=== PATIENT | male | born 1960 | race Caucasian/White ===

== ENCOUNTER → 2016-12-13 | Outpatient (CLI) | payer BC ==
[~2016-12-13] MED LIST: LSNUNK
--- NOTE | 2016-12-13 08:23 | DIAGNOSTIC IMAGING REPORT ---
ULTRASOUND ABDOMEN COMPLETE CLINICAL HISTORY: Generalized abdominal pain. COMPARISON STUDY: Abdominal radiograph dated 04/18/2016. TECHNIQUE: Real-time, grayscale, and color flow sonography of the abdomen was performed. Images are reviewed in the transverse and longitudinal planes. FINDINGS: Liver: The liver is normal in size and echotexture. There is no intrahepatic biliary ductal dilatation. The main portal vein is patent. Gallbladder: A 4 mm gallbladder polyp is incidentally noted. The gallbladder is otherwise normal in appearance. No gallstones are identified. There is no gallbladder wall thickening or pericholecystic fluid. A sonographic Castaneda's sign is reportedly absent. The common bile duct measures up to 0.6 cm in diameter. Pancreas: Not well visualized due to overlying bowel gas. Spleen: The spleen is normal in size and echotexture, measuring 8.4 cm in length. Kidneys: The kidneys are normal in size and echotexture. There is no hydronephrosis. The right kidney measures 9.5 cm in length and the left kidney measures 9.3 cm in length. No shadowing calculi are identified. Abdominal vasculature: Visualized portions of the abdominal aorta are normal in appearance. The majority of the aorta was not well visualized. Ascites: None. IMPRESSION: 1. No acute sonographic abnormality is identified. 2. No gallstones are seen. 3. The pancreas was not well visualized due to overlying bowel gas. 4. A 4 mm gallbladder polyp is incidentally noted. Electronically signed by: Ricky Escamilla M.D. 12/13/2016 8:21 AM Dictated Date/Time: 12/13/2016 8:19 AM
== END | disposition home or self-care (01) ==
LOC: C.ULTRBC 07:51
PROVIDERS: ATTEND Family Medicine
DX: R10.9 Unspecified abdominal pain (principal); K82.4 Cholesterolosis of gallbladder

== ENCOUNTER → 2017-06-14 | Outpatient (CLI) | payer BC ==
--- NOTE | 2017-06-14 10:01 | DIAGNOSTIC IMAGING REPORT ---
ABDOMEN FOR HERNIA CLINICAL HISTORY: 57 years-old Male presenting with R10.33 Periumbilical abdominal painR/O VENTRAL HERNIA, AREA CYNTHIA. TECHNIQUE: Real-time grayscale ultrasound imaging of the abdominal wall was performed for a focused evaluation at the site of clinical interest in the supraumbilical region the left of midline. COMPARISON: None. FINDINGS: No definite sonographic abnormality is detected. No evidence of hernia or fluid collection. Normal appearance of the musculature. IMPRESSION: 1. No definite herniation is apparent. Electronically signed by: Dc Aguirre M.D. 06/14/2017 10:00 AM Dictated Date/Time: 06/14/2017 9:58 AM
== END | disposition home or self-care (01) ==
LOC: C.ULTRBC 09:37
PROVIDERS: ATTEND Surgery
DX: R10.33 Periumbilical pain (principal)

== ENCOUNTER → 2017-12-19 | Outpatient (CLI) | payer OTHER ==
--- NOTE | 2017-12-19 08:23 | DIAGNOSTIC IMAGING REPORT ---
ABDOMINAL ULTRASOUND, RIGHT UPPER QUADRANT HISTORY: CHOLESTEROLOSIS OF GALLBLADDER. COMPARISON: Abdominal ultrasound 12/13/2016. FINDINGS: Pancreas: Obscured by overlying bowel gas. Liver: Unremarkable. Gallbladder: No gallbladder wall thickening. No gallstones. A few small polyps with the largest measuring 4 mm. This remains unchanged. CBD: Upper limits of normal measuring 6 mm. Right kidney: No hydronephrosis. IMPRESSION: No change compared to the prior study. Stable subcentimeter gallbladder polyps. Electronically signed by: Carlos Coyle M.D. 12/19/2017 8:22 AM Dictated Date/Time: 12/19/2017 8:20 AM
== END | disposition home or self-care (01) ==
LOC: C.ULTR 07:35
PROVIDERS: ATTEND Family Medicine
DX: K82.4 Cholesterolosis of gallbladder (principal)

== ENCOUNTER 2020-09-10 19:51 | Inpatient (IN) ==
[2020-09-10] MEDS ORDERED: ONDANSETRON INJ 2 MG/ML 2 ML VIAL IV STA (20:04)
[2020-09-10] MEDS ORDERED: SODIUM CHLORIDE 0.9% 1000ML 2,000 ML IV ONE (20:04)
[2020-09-10] MEDS ORDERED: PIPERACILLIN/TAZOBACTAM 4.5 GM/120 ML BAG IV ONE (20:06)
[2020-09-10] MEDS ORDERED: VANCOMYCIN CONSULT ACTIVE PRN (20:06)
[2020-09-10] MEDS ORDERED: DEXAMETHASONE SOD INJ 10 MG/ML VIAL IV ONE (20:06)
[2020-09-10] MEDS ORDERED: VANCOMYCIN HCL 1,500 MG in SODIUM CHLORIDE 0.9% 500 ML IV ONE (20:06)
[2020-09-10] MEDS ORDERED: PIPERACILL/TAZOBAC CONSULT ACTIVE PRN (20:06)
[2020-09-10] MEDS ORDERED: REMDESIVIR 200 MG in SODIUM CHLORIDE 0.9% 210 ML IV STA (20:06)
[2020-09-10] MEDS ORDERED: SODIUM CHLORIDE 0.9% 10ML FLUSH IV SCH (20:15)
[2020-09-10 20:27] LABS: Basophils # (auto) 0.03 K/uL (0-0.2); Basophils % (auto) 0.3 %; Eosinophils # (auto) 0.29 K/uL (0-0.5); Eosinophils % (auto) 2.6 %; Hematocrit (blood only) 40.8 % (42-52); Hemoglobin 14.1 g/dL (14.0-18.0); Immature Granulocytes # (auto) 0.03 K/uL (0.00-0.02); Immature Granulocytes % (auto) 0.3 %; Lymphocytes # (auto) 1.65 K/uL (1.2-3.4); Lymphocytes % (auto) 15.1 %; Mean Corpuscular Hemoglobin 30.3 pg (25-34); Mean Corpuscular Hgb Conc 34.6 g/dL (32-36); Mean Corpuscular Volume 87.7 fL (80-100); Mean Platelet Volume 9.8 fL (7.4-10.4); Monocytes # (auto) 0.84 K/uL (0.11-0.59); Monocytes % (auto) 7.7 %; Neutrophils # (auto) 8.12 K/uL (1.4-6.5); Platelet Count 296 K/uL (130-400); RDW Coefficient of Variation 12.4 % (11.5-14.5); RDW Standard Deviation 39.9 fL (36.4-46.3); Red Blood Count 4.65 M/uL (4.7-6.1); White Blood Count 10.96 K/uL (4.8-10.8)
[2020-09-10 20:36] LABS: Base Excess VBG 0.2 mEq/L; Oxygen Saturation VBG 88.7 %; pH VBG 7.44 (7.36-7.41)
[2020-09-10 20:39] LABS: D Dimer 470 ug/L FEU (0-500); Partial Thromboplastin Ratio 0.8; Partial Thromboplastin Time 22.5 Seconds (21.0-31.0); Prothrombin Time 10.8 Seconds (9.0-12.0)
--- NOTE | 2020-09-10 20:43 | Emergency Department Note ---
Impression & Plan Pneumonia, Acute hypotension ED Provider Note NAME: JOVAN MANDEL AGE: 60 SEX: M : 1960 ARRIVES VIA: Walk-In INFORMANT: Patient, patient's significant other ED PROVIDER(S): Duncan Russ DO CHIEF COMPLAINT: Fever HPI: The patient is a 60-year-old male who presented to the emergency department with his significant other for an evaluation of generalized weakness. The patient was diagnosed with COVID-19 infection recently. Initially he had mostly muscle aches but started having significant cough rhinorrhea and difficulty breathing. He started having worsening symptoms over the last 2 days. His significant other states that she has been monitoring his pulse ox as well as his pulse rate. Apparently the patient has been having fast heart rate as well as oxygen saturation in the upper 80s. The patient started having significant weakness to the point where he was having trouble ambulating so she brought him to the emergency department for further evaluation. The patient was moved directly to room C5 and made a priority patient because of significant hypotension. He does have a history of hypertension and takes medications. He states that he is on no specific medications for COVID-19 infection. He denies having any recent medications for fever. He has been trying to drink plenty of clear liquids. The patient has been noticing some GI symptoms such as nausea. The patient has not recently been seen by his doctor. ROS: See above HPI for pertinent positives & negatives. A total of 10 systems reviewed and were otherwise negative. PAST MEDICAL HISTORY: See Below PAST SURGICAL HISTORY: See Below FAMILY HISTORY: See Below SOCIAL HISTORY: See Below HOME MEDICATIONS: See Below ALLERGIES: See Below VITALS: See Below PHYSICAL EXAMINATION: GENERAL: The patient is awake and alert. He is somewhat anxious appearing. EYES: The conjunctivae are clear. The pupils are round and reactive. EARS, NOSE, MOUTH AND THROAT: The nose is without any evidence of any deformity. Mucous membranes are moist. Tongue is midline. NECK: The neck is nontender and supple. RESPIRATORY: Shallow respirations were noted. Diminished breath sounds are noted in the right lung field. There was no tachypnea. CARDIOVASCULAR: Regular rate and rhythm noted there no murmurs rubs or gallops normal S1 normal S2. GASTROINTESTINAL: The abdomen is soft. Abdomen is nontender. MUSCULOSKELETAL/EXTREMITIES: There is no evidence of gross deformity full range of motion is noted in the hips and shoulders. SKIN: Skin is warm and dry. Trace pedal edema was noted bilaterally. NEUROLOGIC: Patient is awake alert and oriented x3. MEDICAL DECISION MAKING: The patient is a 60-year-old male who presented to the emergency department for an evaluation of difficulty breathing. The patient was recently diagnosed with COVID-19 infection. The patient started to get worse over the course the last 24 hours. His significant other was following his pulse ox as well as his pulse rate. Apparently the patient became very hypoxic into the 80s and had severe shortness of breath and weakness. The patient presented to the emergency department with hypotension. He appeared to be septic. The patient was treated with IV fluids and IV antibiotics. He was also given IV Decadron and other medications for COVID-19 infection specifically. I discussed the patient's laboratory and radiographic studies with him and his significant other. I also discussed his case with the on-call [facility] hospitalist. He is agreed to evaluate the patient in the emergency department for further management and disposition. The patient's blood pressure was significantly improved. Triage Nursing notes reviewed. Prior medical records reviewed Vital Signs: reviewed and remarkable for hypotension. Differential diagnosis: Viral syndrome, otitis, pharyngitis, pneumonia, influenza, meningitis, urinary tract infection, sepsis, bacteremia, as well as other pathologies. ER treatment provided: See below Diagnostics interpreted by me: ECG: EKG was obtained in the emergency department. My interpretation is normal sinus rhythm at 71 bpm. There was no ectopy. There was no acute ST segment abnormalities noted. This was compared to a tracing from September 22, 2010. No significant changes were noted. Cardiac Monitoring: An order was placed for continuous cardiac monitoring. The monitor shows a rate of 85 bpm with sinus rhythm. Laboratory studies: As stated above and show below. Imaging studies: See below Consultation(s): 2129: I discussed this case with Dr. De La Cruz. They will evaluate the patient in the emergency department for further management and disposition. ED COURSE: Procedures: none PDMP:reviewed and no issues Critical Care: I have personally spent greater than 60 minutes of critical care time in the direct management of this patient. This includes bedside care, interpretation of diagnostic studies, and testing, discussion with consultants, patient, and family members, and other required patient management activities. This 60 minutes is in excess of all separately billable procedures. Past Med/Surg History Medical History (Updated 09/10/20 @ 21:42 by Duncan Russ DO) Carpal tunnel syndrome Environmental allergies Hyperlipidemia Hypertension Peptic ulcer disease 6yrs ago Surgical History History of cataract surgery LEFT. 05/14/2019. 4mg versed. no issues. History of colonoscopy 5 yrs ago History of tooth extraction Family History Other No known health problems Social History Smoking Status: Former smoker Second Hand Exposure: No; Hx Alcohol Use: Yes Alcohol type: beer and wine Hx Substance Use: No Preferred Language: Croatian Communication Ability: Impaired Senior Engineer Required: No Beliefs That Will Affect Care: None Current Living Situation: Spouse Feels Safe at Home: Yes Assistive Devices: Glasses Allergies Allergies Allergy/AdvReac Type Severity Reaction Status Date / Time Sulfa (Sulfonamide Allergy Intermediate HIVES Verified 05/28/19 08:41 Antibiotics) Home Meds Home Medications Medication Instructions Recorded Confirmed atorvastatin 20 mg PO HS 03/05/19 05/28/19 lisinopril 20 mg PO QAM 03/05/19 05/28/19 Results & Data (ED) Vital Signs Vital Signs - 24 hr 09/10/20 19:53 09/10/20 20:01 09/10/20 21:09 Temperature 36.2 C L Temperature Source Temporal Artery Scan Pulse Rate 50 L 77 77 Pulse Rate from SpO2 Sensor 77 78 Respiratory Rate 20 12 12 Respiratory Effort / Characteristics Blood Pressure 68/46 L 108/65 Blood Pressure Mean 53 71 Pulse Oximetry 94 95 95 Oxygen Delivery Method Room Air Room Air Room Air Sepsis Recent Fever Within 48 Hours Yes Sepsis New/Unexplained Change in Mental Status No Sepsis Action Taken by Nursing No Action Required 09/10/20 21:15 09/10/20 21:21 09/10/20 21:23 Temperature Temperature Source Pulse Rate 81 81 Pulse Rate from SpO2 Sensor 81 81 Respiratory Rate 13 23 16 Respiratory Effort / Characteristics Non-Labored Spontaneous Blood Pressure 128/79 Blood Pressure Mean 86 Pulse Oximetry 97 96 96 Oxygen Delivery Method Room Air Room Air Room Air Sepsis Recent Fever Within 48 Hours Sepsis New/Unexplained Change in Mental Status Sepsis Action Taken by Care Home Medications Current Medication List: was personally reviewed by me Laboratory Data Attestation: I reviewed the patient's lab results. Result diagrams: 09/10/20 20:11 09/10/20 20:11 Lab Results 09/10/20 09/10/20 09/10/20 Range/Units 20:04 20:11 20:11 WBC 10.96 H (4.8-10.8) K/uL RBC 4.65 L (4.7-6.1) M/uL Hgb 14.1 (14.0-18.0) g/dL Hct 40.8 L (42-52) % MCV 87.7 (80-100) fL MCH 30.3 (25-34) pg MCHC 34.6 (32-36) g/dL RDW Std Deviation 39.9 (36.4-46.3) fL RDW Coeff of Luis 12.4 (11.5-14.5) % Plt Count 296 (130-400) K/uL MPV 9.8 (7.4-10.4) fL Immature Gran % (Auto) 0.3 % Neut % (Auto) 74.0 % Lymph % (Auto) 15.1 % Laurel % (Auto) 7.7 % Eos % (Auto) 2.6 % Baso % (Auto) 0.3 % Neut # (Auto) 8.12 H (1.4-6.5) K/uL Lymph # (Auto) 1.65 (1.2-3.4) K/uL Laurel # (Auto) 0.84 H (0.11-0.59) K/uL Eos # (Auto) 0.29 (0-0.5) K/uL Baso # (Auto) 0.03 (0-0.2) K/uL Immature Gran # (Auto) 0.03 H (0.00-0.02) K/uL ESR 57 H (0-14) mm/hr PT (9.0-12.0) Seconds INR (0.9-1.1) APTT (21.0-31.0) Seconds PTT Ratio D-Dimer (0-500) ug/L FEU VBG pH 7.44 H (7.36-7.41) VBG pCO2 37 L (38-50) mmHg VBG pO2 55 mmHg VBG HCO3 24 mmol/L VBG O2 Saturation 88.7 % VBG Base Excess 0.2 mEq/L Barometric Pressure 738.2 mm/Hg Sodium (136-145) mmol/L Potassium (3.5-5.1) mmol/L Chloride (98-107) mmol/L Carbon Dioxide (21-32) mmol/L Anion Gap (3-11) BUN (7-18) mg/dl Creatinine (0.6-1.4) mg/dl Est Cr Clr Drug Dosing ml/min Est GFR ( Amer) Est GFR (Non-Af Amer) BUN/Creatinine Ratio (10-20) Glucose (70-99) mg/dl Lactate (0.4-2.0) mmol/L Calcium (8.5-10.1) mg/dl Magnesium (1.8-2.4) mg/dl Total Bilirubin (0.2-1) mg/dl AST (15-37) U/L ALT (12-78) U/L Alkaline Phosphatase (45-117) U/L Troponin I (0-0.045) ng/ml C-Reactive Protein (0-0.29) mg/dl Total Protein (6.4-8.2) gm/dl Albumin (3.4-5.0) gm/dl Globulin (2.5-4.0) gm/dl Albumin/Globulin Ratio (0.9-2) Procalcitonin (0-0.5) ng/ml 09/10/20 09/10/20 09/10/20 Range/Units 20:11 20:11 20:11 WBC (4.8-10.8) K/uL RBC (4.7-6.1) M/uL Hgb (14.0-18.0) g/dL Hct (42-52) % MCV (80-100) fL MCH (25-34) pg MCHC (32-36) g/dL RDW Std Deviation (36.4-46.3) fL RDW Coeff of Luis (11.5-14.5) % Plt Count (130-400) K/uL MPV (7.4-10.4) fL Immature Gran % (Auto) % Neut % (Auto) % Lymph % (Auto) % Laurel % (Auto) % Eos % (Auto) % Baso % (Auto) % Neut # (Auto) (1.4-6.5) K/uL Lymph # (Auto) (1.2-3.4) K/uL Laurel # (Auto) (0.11-0.59) K/uL Eos # (Auto) (0-0.5) K/uL Baso # (Auto) (0-0.2) K/uL Immature Gran # (Auto) (0.00-0.02) K/uL ESR (0-14) mm/hr PT 10.8 (9.0-12.0) Seconds INR 1.0 (0.9-1.1) APTT 22.5 (21.0-31.0) Seconds PTT Ratio 0.8 D-Dimer 470 (0-500) ug/L FEU VBG pH (7.36-7.41) VBG pCO2 (38-50) mmHg VBG pO2 mmHg VBG HCO3 mmol/L VBG O2 Saturation % VBG Base Excess mEq/L Barometric Pressure mm/Hg Sodium 138 (136-145) mmol/L Potassium 4.4 (3.5-5.1) mmol/L Chloride 106 (98-107) mmol/L Carbon Dioxide 27 (21-32) mmol/L Anion Gap 4.0 (3-11) BUN 21 H (7-18) mg/dl Creatinine 1.17 (0.6-1.4) mg/dl Est Cr Clr Drug Dosing 69.5 ml/min Est GFR ( Amer) 79.2 Est GFR (Non-Af Amer) 68.3 BUN/Creatinine Ratio 18.0 (10-20) Glucose 131 H (70-99) mg/dl Lactate 1.3 (0.4-2.0) mmol/L Calcium 8.9 (8.5-10.1) mg/dl Magnesium 2.3 (1.8-2.4) mg/dl Total Bilirubin 0.5 (0.2-1) mg/dl AST 28 (15-37) U/L ALT 24 (12-78) U/L Alkaline Phosphatase 81 (45-117) U/L Troponin I < 0.015 (0-0.045) ng/ml C-Reactive Protein 12.30 H (0-0.29) mg/dl Total Protein 7.1 (6.4-8.2) gm/dl Albumin 2.9 L (3.4-5.0) gm/dl Globulin 4.2 H (2.5-4.0) gm/dl Albumin/Globulin Ratio 0.7 L (0.9-2) Procalcitonin (0-0.5) ng/ml 09/10/20 Range/Units 20:11 WBC (4.8-10.8) K/uL RBC (4.7-6.1) M/uL Hgb (14.0-18.0) g/dL Hct (42-52) % MCV (80-100) fL MCH (25-34) pg MCHC (32-36) g/dL RDW Std Deviation (36.4-46.3) fL RDW Coeff of Luis (11.5-14.5) % Plt Count (130-400) K/uL MPV (7.4-10.4) fL Immature Gran % (Auto) % Neut % (Auto) % Lymph % (Auto) % Laurel % (Auto) % Eos % (Auto) % Baso % (Auto) % Neut # (Auto) (1.4-6.5) K/uL Lymph # (Auto) (1.2-3.4) K/uL Laurel # (Auto) (0.11-0.59) K/uL Eos # (Auto) (0-0.5) K/uL Baso # (Auto) (0-0.2) K/uL Immature Gran # (Auto) (0.00-0.02) K/uL ESR (0-14) mm/hr PT (9.0-12.0) Seconds INR (0.9-1.1) APTT (21.0-31.0) Seconds PTT Ratio D-Dimer (0-500) ug/L FEU VBG pH (7.36-7.41) VBG pCO2 (38-50) mmHg VBG pO2 mmHg VBG HCO3 mmol/L VBG O2 Saturation % VBG Base Excess mEq/L Barometric Pressure mm/Hg Sodium (136-145) mmol/L Potassium (3.5-5.1) mmol/L Chloride (98-107) mmol/L Carbon Dioxide (21-32) mmol/L Anion Gap (3-11) BUN (7-18) mg/dl Creatinine (0.6-1.4) mg/dl Est Cr Clr Drug Dosing ml/min Est GFR ( Amer) Est GFR (Non-Af Amer) BUN/Creatinine Ratio (10-20) Glucose (70-99) mg/dl Lactate (0.4-2.0) mmol/L Calcium (8.5-10.1) mg/dl Magnesium (1.8-2.4) mg/dl Total Bilirubin (0.2-1) mg/dl AST (15-37) U/L ALT (12-78) U/L Alkaline Phosphatase (45-117) U/L Troponin I (0-0.045) ng/ml C-Reactive Protein (0-0.29) mg/dl Total Protein (6.4-8.2) gm/dl Albumin (3.4-5.0) gm/dl Globulin (2.5-4.0) gm/dl Albumin/Globulin Ratio (0.9-2) Procalcitonin 0.10 (0-0.5) ng/ml Administered Medications Sodium Chloride (Nss 1000ml) 2,000 mls @ 999 mls/hr IV .Q2H1M ONE Stop: 09/10/20 22:04 Last Infusion: 09/10/20 21:24 Dose: 0 mls/hr Documented by: [id number] Admin: 09/10/20 20:28 Dose: 999 mls/hr Documented by: [id number] Vancomycin HCl 1,500 mg/ (Sodium Chloride) 530 mls @ 200 mls/hr IV NOW ONE Stop: 09/10/20 22:44 Last Admin: 09/10/20 21:30 Dose: 200 mls/hr Documented by: [id number] Remdesivir 200 mg/ Sodium (Chloride) 250 mls @ 125 mls/hr IV ONE STA; Protocol Stop: 09/10/20 22:05 Last Admin: 09/10/20 21:18 Dose: 125 mls/hr Documented by: [id number] Discontinued Medications Dexamethasone (Dexamethasone Sod Inj 10 Mg/Ml Vial) 10 mg IV NOW ONE Stop: 09/10/20 20:07 Last Admin: 09/10/20 20:29 Dose: 10 mg Documented by: [id number] Piperacillin Sod/Tazobactam Sod (Zosyn) 4.5 gm in 120 mls @ 240 mls/hr IV NOW ONE Stop: 09/10/20 20:35 Last Infusion: 09/10/20 21:24 Dose: 0 mls/hr Documented by: [id number] Admin: 09/10/20 20:28 Dose: 240 mls/hr Documented by: [id number] Ondansetron HCl (Ondansetron Inj 2 Mg/Ml 2 Ml Vial) 4 mg IV NOW STA Stop: 09/10/20 20:05 Last Admin: 09/10/20 20:32 Dose: 4 mg Documented by: [id number] Imaging Data Radiologist's Impression: Patient: CHUNG WAGNER Admit Date: 09/10/20 MR#: [id number] Address1: [address] [place] [address] Acct ID:[id number] Address2: Date: 12/24/1968 [facility] Zip: [place] [address] Age: 51 Location: ED Sex: M Room/Bed: Att Phy: Diagnosis: SUGAR HIGH,CHEST PAIN Kamila Phy: Barney Buchanan MD Service Date: 09/10/20 [facility] Phy: Interpreting Phy: Ricky Escamilla MD Admit Phy: Ordering Phy: Hiram Edwards M.D. cc: ~ SINGLE VIEW CHEST CLINICAL HISTORY: Dyspnea. FINDINGS: An AP, portable, upright chest radiograph is compared to study dated 07/24/2019 and correlated with chest CT dated 08/20/2019. The cardiomediastinal silhouette is unremarkable. The lungs and pleural spaces are clear. No pneumothorax is seen. The bony thorax is grossly intact. Degenerative change is noted in the right shoulder. IMPRESSION: No active disease in the chest. ACT 112: Negative or not required by law. Electronically signed by: Ricky Escamilla M.D. 09/10/2020 8:31 PM Dictated: 09/10/202029 Transcribed: 09/10/202029 Blood Pressure Blood Pressure Findings: Low blood pressure Discharge Plan Visit Data Chief Complaint: Fever Stated Complaint: COVID+, fever ED Provider: Duncan Russ Discharge Problem: Pneumonia, Acute hypotension Patient Disposition: Being Evaluated by Hospitalist Condition: Good Forms Stand Alone Forms: My [employer] Prescriptions Prescriptions: No Action atorvastatin 20 mg Tablet 20 mg PO HS RF: 0 lisinopril 20 mg Tablet 20 mg PO QAM RF: 0 Referrals Referrals: Frankie Gomes [Primary Care Provider] -
[2020-09-10 20:44] LABS: Alanine Aminotransferase 24 U/L (12-78); Albumin Level 2.9 gm/dl (3.4-5.0); Aspartate Aminotransferase 28 U/L (15-37); Blood Urea Nitrogen 21 mg/dl (7-18); Calcium 8.9 mg/dl (8.5-10.1); Carbon Dioxide 27 mmol/L (21-32); Chloride 106 mmol/L (98-107); Creatinine Clr Calc Pharmacy 69.5 ml/min; Est GFR (African American) 79.2; Est GFR (Non-African American) 68.3; Glucose 131 mg/dl (70-99); Magnesium 2.3 mg/dl (1.8-2.4); Potassium 4.4 mmol/L (3.5-5.1); Sodium 138 mmol/L (136-145)
[2020-09-10 20:49] LABS: Albumin Globulin Ratio 0.7 (0.9-2); Alkaline Phosphatase 81 U/L (45-117); Bilirubin,Total 0.5 mg/dl (0.2-1); Globulin 4.2 gm/dl (2.5-4.0); Total Protein 7.1 gm/dl (6.4-8.2); Troponin I < 0.015 ng/ml (0-0.045)
--- NOTE | 2020-09-10 21:01 | XRay Report ---
SINGLE VIEW CHEST CLINICAL HISTORY: Sepsis. FINDINGS: An AP, portable, upright chest radiograph is compared to study dated 08/17/2010. The cardio mediastinal silhouette is unremarkable. There is patchy interstitial airspace consolidation seen thro ughout both lungs. No large pleural effusion or pneumothorax is identified. The bony thorax is grossl y intact. IMPRESSION: Patchy interstitial airspace consolidation is seen throughout both lungs, typical for an infectious pneumonitis. Radiographic follow-up to resolution is recommended. ACT 112: Negative or not required by law. Electronically signed by: Ricky Escamilla M.D. 09/10/2020 9:00 PM
[2020-09-10 22:43] LABS: Influenza A virus by PCR Negative (Neg); Influenza B virus by PCR Negative (Neg); RSV by PCR Negative (Neg)
[2020-09-10 22:48] LABS: SARS CoV2 RNA(COVID-19) InHosp POSITIVE (Negative)
--- NOTE | 2020-09-10 23:08 | History & Physical Report ---
Date of Service September 10, 2020 Assessment & Plan (1) Pneumonia due to COVID-19 virus: Pneumonia due to COVID-19 virus/superimposed bacterial pneumonia/with hypoxia- Dexamethasone 6 mg IV daily Ceftriaxone 1 g IV every morning Azithromycin 500 mg IV every morning Zinc sulfate 220 mg p.o. every morning Ventolin HFA 2 puffs 4 times daily, and every 2 hours as needed Nasal cannula oxygen, titrate to keep pulse ox around 95% Present on Admission?: Yes (2) Pneumonia: Some of patient's symptoms had begun to improve, and then he developed some worsening symptoms, concerning for possible secondary bacterial infection See above Present on Admission?: Yes (3) Hypoxia: See above Present on Admission?: Yes (4) Acute hypotension: Acute hypotension, with hypertension history- Blood pressure upon arrival was 68/46, that did improve after IV fluid rehydration to 108/65. Hold lisinopril. Present on Admission?: Yes (5) Hypertension: See above Present on Admission?: Yes (6) Hyperlipidemia: Continue atorvastatin 20 mg at bedtime and aspirin 3 and 25 mg daily Present on Admission?: Yes History of Present Illness Chief Complaint: The patient presents to the emergency department, accompanied by his , who acts to help tell his history, with complaint of progressive generalized weakness over the past few days, with generalized muscle aches, cough and shortness of breath Primary Care Provider: Frankie Gomes The patient is a 60-year-old primarily Senegalese speaking male, accompanied by his , with a past medical history including hypertension and hyperlipidemia. She reports that she was initially diagnosed with COVID-19 illness, and he underwent testing on August [address] [facility] in [place], and was notified of a positive test on September 02. His symptoms were initially primarily that of a significant cough and runny nose, with shortness of breath. Since that time, he has had significant generalized weakness, and has been sleeping a lot more than usual over the past 3 days. Work-up in the emergency department includes following abnormal laboratories: WBC 10.96, albumin 2.9, glucose 131, ESR 57, CRP 12.30. PCR test for COVID-19 was positive in the ED tonight. Chest x-ray shows bilateral interstitial infiltrates. Allergies Allergy/AdvReac Type Severity Reaction Status Date / Time Sulfa (Sulfonamide Allergy Intermediate HIVES Verified 09/10/20 21:52 Antibiotics) Home Medications Medication Instructions Recorded Confirmed Type atorvastatin 20 mg PO HS 03/05/19 09/10/20 History lisinopril 20 mg PO QAM 03/05/19 09/10/20 History aspirin 325 mg PO DAILY 09/10/20 09/10/20 History multivitamin 1 tab PO DAILY 09/10/20 09/10/20 History Past Med/Surg History Medical History (Updated 09/11/20 @ 02:42 by Otis Wu MD) Carpal tunnel syndrome Environmental allergies Hyperlipidemia Hypertension Peptic ulcer disease 6yrs ago Surgical History History of cataract surgery LEFT. 05/14/2019. 4mg versed. no issues. 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 Required: No Beliefs That Will Affect Care: None Current Living Situation: Spouse Other Information That Helps Us Care for You: No Feels Safe at Home: Yes Safety Concerns: Feels Safe At This Time Assistive Devices: None Review of Systems Review of Systems: The patient denies chest pain, palpitations, lower extremity swelling, sore throat, fevers, chills, sweats, nausea, vomiting, diarrhea , constipation, abdominal pain, pelvic pain, blood in urine or stool, dysuria, urinary frequency or urgency, lightheadedness, dizziness, headache, memory loss, loss of consciousness, rash, abnormal bruising or bleeding, imbalance, focal weakness, numbness or tingling in arms or legs, back or neck pain, or night sweats. The review of systems is otherwise negative other than for that already noted above, and at least 10 systems have been reviewed. Physical Exam Physical Exam: The patient is awake, alert and oriented 3, normocephalic and atraumatic, lying in bed and in no acute distress. HEENT--PERRL, EOMI, mucous membranes and oropharynx normal. Neck--supple. No JVD. No bruits. Thyroid normal, trachea midline, no adenopathy. Heart--normal S1 and S2. No murmurs, rubs or gallops. Lungs--coarse breath sounds bilaterally. No respiratory distress, no accessory muscle use. Abdomen--normal bowel sounds and soft. Nontender. Nondistended. Extremities--no cyanosis or clubbing. No edema. Dermatologic--normal skin turgor, normal color, no abnormal lymph nodes, no rash. Neurologic--cranial nerves II through XII grossly intact. Rheumatologic--normal range of motion. Psychiatric--normal affect. Results & Data Results & Data ([facility]) Vital Signs (Past 12 Hours) Vital Signs Temp Pulse Resp BP Pulse Ox 09/10/20 22:31 73 16 94 09/10/20 22:30 68 13 114/78 95 09/10/20 22:15 76 22 96 09/10/20 22:01 78 14 95 09/10/20 22:00 78 12 120/76 95 09/10/20 21:56 95 09/10/20 21:31 82 22 95 09/10/20 21:30 78 18 118/76 95 09/10/20 21:23 16 96 09/10/20 21:22 80 20 95 09/10/20 21:21 81 23 128/79 96 09/10/20 21:15 81 13 97 09/10/20 21:09 77 12 95 09/10/20 20:01 77 12 108/65 95 09/10/20 19:53 97.2 F L 50 L 20 68/46 L 94 Laboratory Results Laboratory Results WBC 10.96 K/uL (4.8-10.8) H 09/10/20 20:11 RBC 4.65 M/uL (4.7-6.1) L 09/10/20 20:11 Hgb 14.1 g/dL (14.0-18.0) 09/10/20 20:11 Hct 40.8 % (42-52) L 09/10/20 20:11 MCV 87.7 fL (80-100) 09/10/20 20:11 MCH 30.3 pg (25-34) 09/10/20 20:11 MCHC 34.6 g/dL (32-36) 09/10/20 20:11 RDW Std Deviation 39.9 fL (36.4-46.3) 09/10/20 20:11 RDW Coeff of Luis 12.4 % (11.5-14.5) 09/10/20 20:11 Plt Count 296 K/uL (130-400) 09/10/20 20:11 MPV 9.8 fL (7.4-10.4) 09/10/20 20:11 Immature Gran % (Auto) 0.3 % 09/10/20 20:11 Neut % (Auto) 74.0 % 09/10/20 20:11 Lymph % (Auto) 15.1 % 09/10/20 20:11 [place]ill % (Auto) 7.7 % 09/10/20 20:11 Eos % (Auto) 2.6 % 09/10/20 20:11 Baso % (Auto) 0.3 % 09/10/20 20:11 Neut # (Auto) 8.12 K/uL (1.4-6.5) H 09/10/20 20:11 Lymph # (Auto) 1.65 K/uL (1.2-3.4) 09/10/20 20:11 Estill # (Auto) 0.84 K/uL (0.11-0.59) H 09/10/20 20:11 Eos # (Auto) 0.29 K/uL (0-0.5) 09/10/20 20:11 Baso # (Auto) 0.03 K/uL (0-0.2) 09/10/20 20:11 Immature Gran # (Auto) 0.03 K/uL (0.00-0.02) H 09/10/20 20:11 ESR 57 mm/hr (0-14) H 09/10/20 20:11 PT 10.8 Seconds (9.0-12.0) 09/10/20 20:11 INR 1.0 (0.9-1.1) 09/10/20 20:11 APTT 22.5 Seconds (21.0-31.0) 09/10/20 20:11 PTT Ratio 0.8 09/10/20 20:11 D-Dimer 470 ug/L FEU (0-500) 09/10/20 20:11 VBG pH 7.44 (7.36-7.41) H 09/10/20 20:04 VBG pCO2 37 mmHg (38-50) L 09/10/20 20:04 VBG pO2 55 mmHg 09/10/20 20:04 VBG HCO3 24 mmol/L 09/10/20 20:04 VBG O2 Saturation 88.7 % 09/10/20 20:04 VBG Base Excess 0.2 mEq/L 09/10/20 20:04 Barometric Pressure 738.2 mm/Hg 09/10/20 20:04 Sodium 138 mmol/L (136-145) 09/10/20 20:11 Potassium 4.4 mmol/L (3.5-5.1) 09/10/20 20:11 Chloride 106 mmol/L (98-107) 09/10/20 20:11 Carbon Dioxide 27 mmol/L (21-32) 09/10/20 20:11 Anion Gap 4.0 (3-11) 09/10/20 20:11 BUN 21 mg/dl (7-18) H 09/10/20 20:11 Creatinine 1.17 mg/dl (0.6-1.4) 09/10/20 20:11 Est Cr Clr Drug Dosing 69.5 ml/min 09/10/20 20:11 Est GFR ( Amer) 79.2 09/10/20 20:11 Est GFR (Non-Af Amer) 68.3 09/10/20 20:11 BUN/Creatinine Ratio 18.0 (10-20) 09/10/20 20:11 Glucose 131 mg/dl (70-99) H 09/10/20 20:11 Lactate 1.3 mmol/L (0.4-2.0) 09/10/20 20:11 Calcium 8.9 mg/dl (8.5-10.1) 09/10/20 20:11 Magnesium 2.3 mg/dl (1.8-2.4) 09/10/20 20:11 Total Bilirubin 0.5 mg/dl (0.2-1) 09/10/20 20:11 AST 28 U/L (15-37) 09/10/20 20:11 ALT 24 U/L (12-78) 09/10/20 20:11 Alkaline Phosphatase 81 U/L (45-117) 09/10/20 20:11 Troponin I < 0.015 ng/ml (0-0.045) 09/10/20 20:11 C-Reactive Protein 12.30 mg/dl (0-0.29) H 09/10/20 20:11 Total Protein 7.1 gm/dl (6.4-8.2) 09/10/20 20:11 Albumin 2.9 gm/dl (3.4-5.0) L 09/10/20 20:11 Globulin 4.2 gm/dl (2.5-4.0) H 09/10/20 20:11 Albumin/Globulin Ratio 0.7 (0.9-2) L 09/10/20 20:11 Procalcitonin 0.10 ng/ml (0-0.5) 09/10/20 20:11 COVID-19 Eval Order CovFluRsv at [facility] 09/10/20 21:46 SARS-CoV-2 (PCR) POSITIVE (Negative) A* 09/10/20 21:46 Influenza Type A (PCR) Negative (Neg) 09/10/20 21:46 Influenza Type B (PCR) Negative (Neg) 09/10/20 21:46 RSV (RT-PCR) Negative (Neg) 09/10/20 21:46 Diagnostic Findings [facility], [phone] XRay Report Patient: Renate MANDEL Date: 09/10/20MR#: [id number]: 89 [facility] ID:[id number]: [facility] Zip: [place], [place] [address]Svq: 60Location: EDSex: MRoom/Bed:Att Phy:Diagnosis: COVID+, feverPri Phy: Frankie Gomes MDService Date: 09/10/20Fa Phy:Interpreting Phy: Ricky Escamilla [facility] Phy: Ordering Phy: Duncan Russ DO cc: ~ SINGLE VIEW CHEST CLINICAL HISTORY: Sepsis. FINDINGS: An AP, portable, upright chest radiograph is compared to study dated 08/17/2010. The cardiomediastinal silhouette is unremarkable. There is patchy interstitial airspace consolidation seen throughout both lungs. No large pleural effusion or pneumothorax is identified. The bony thorax is grossly intact. IMPRESSION: Patchy interstitial airspace consolidation is seen throughout both lungs, typical for an infectious pneumonitis. Radiographic follow-up to resolution is recommended. ACT 112: Negative or not required by law. Electronically signed by: Ricky Escamilla M.D. 09/10/2020 9:00 PM Dictated: 09/10/202057Transcribed: 09/10/202057 Code Status & VTE Plan Code Status Full code VTE Prophylaxis Plan VTE Prophylaxis will be ordered: Yes PG Care Time/CCT Total # of Minutes Spent Total Time Spent with Patient: Total time spent is greater than 50% in coordination of care (as documented) at patient's floor/unit and/or counseling patient: Coding Level of Care Code 13778 Initial Inpt Care Lvl 3 Diagnoses Pneumonia due to COVID-19 virus U07.1; J12.82 Pneumonia J18.9 Laterality: bilateral Lung location: unspecified part of lung Pneumonia type: due to unspecified organism Hypoxia R09.02 Acute hypotension I95.9 Hypertension I10 Hyperlipidemia E78.5 (1) Pneumonia Laterality: bilateral Lung location: unspecified part of lung Pneumonia type: due to unspecified organism Qualified Code(s): J18.9 - Pneumonia, unspecified organism
[2020-09-11] MEDS ORDERED: ONDANSETRON INJ 2 MG/ML 2 ML VIAL IV PRN (00:17)
[2020-09-11] MEDS ORDERED: ACETAMINOPHEN 325 MG TAB PO PRN (00:17)
[2020-09-11 06:22] LABS: Basophils # (auto) 0.01 K/uL (0-0.2); Basophils % (auto) 0.1 %; Eosinophils # (auto) 0.01 K/uL (0-0.5); Eosinophils % (auto) 0.1 %; Hemoglobin 13.3 g/dL (14.0-18.0); Immature Granulocytes # (auto) 0.04 K/uL (0.00-0.02); Immature Granulocytes % (auto) 0.5 %; Mean Corpuscular Hemoglobin 29.4 pg (25-34); Mean Corpuscular Hgb Conc 33.3 g/dL (32-36); Mean Corpuscular Volume 88.5 fL (80-100); Mean Platelet Volume 9.6 fL (7.4-10.4); Monocytes # (auto) 0.19 K/uL (0.11-0.59); Monocytes % (auto) 2.2 %; Neutrophils # (auto) 7.78 K/uL (1.4-6.5); Neutrophils % (auto) 89.1 %; Platelet Count 257 K/uL (130-400); RDW Coefficient of Variation 12.3 % (11.5-14.5); RDW Standard Deviation 39.3 fL (36.4-46.3); Red Blood Count 4.52 M/uL (4.7-6.1); White Blood Count 8.73 K/uL (4.8-10.8)
[2020-09-11] MEDS ORDERED: ALBUTEROL HFA 8 GM INHALER INH SCH (07:00)
[2020-09-11 07:03] LABS: Albumin Level 2.5 gm/dl (3.4-5.0); BUN Creatinine Ratio 20.7 (10-20); Calcium 8.5 mg/dl (8.5-10.1); Creatinine Clr Calc Pharmacy 87.2 ml/min; Est GFR (African American) 103.2; Magnesium 2.5 mg/dl (1.8-2.4); Phosphorus 4.5 mg/dl (2.5-4.9); Potassium 5.2 mmol/L (3.5-5.1)
[2020-09-11] MEDS ORDERED: SODIUM CHLORIDE 0.9% 500 ML IV SCH (07:45)
[2020-09-11] MEDS ORDERED: cefTRIAXone SODIUM 2,000 MG in DEXTROSE 5% 50 ML IV SCH (08:30)
[2020-09-11] MEDS ORDERED: ALBUTEROL HFA 8 GM INHALER INH PRN (08:45)
[2020-09-11] MEDS ORDERED: dexAMETHasone 6 MG in SYRINGE 0 ML IV SCH (09:00)
[2020-09-11] MEDS ORDERED: ENOXAPARIN INJ 40 MG/0.4 ML SYR SQ SCH (09:00)
[2020-09-11] MEDS ORDERED: ASPIRIN 325 MG ECTAB PO SCH (09:00)
[2020-09-11] MEDS ORDERED: ZINC SULFATE 220 MG CAPSULE PO SCH (09:00)
[2020-09-11] MEDS ORDERED: AZITHROMYCIN 500 MG in DEXTROSE 5% 250 ML IV SCH (09:00)
[2020-09-11] MEDS ORDERED: MULTIVITAMIN TAB PO SCH (09:00)
[2020-09-11] MEDS ORDERED: lisinopril 20 MG TAB PO SCH (09:00)
--- NOTE | 2020-09-11 11:58 | Electrocardiogram Report ---
Test Reason : Blood Pressure : / mmHG Vent. Rate : 071 BPM Atrial Rate : 071 BPM P-R Int : 124 ms QRS Dur : 080 ms QT Int : 378 ms P-R-T Axes : 063 054 049 degrees QTc Int : 410 ms Normal sinus rhythm Normal ECG When compared with ECG of 22-SEP-2010 12:09, No significant change was found Confirmed by Duncan Cho ([id number]) on 09/11/2020 11:58:11 AM Referred By: REFERRED SELF Confirmed By:Duncan Cho
[2020-09-11 15:18] LABS: BUN Creatinine Ratio 20.7 (10-20); Calcium 8.6 mg/dl (8.5-10.1); Creatinine Clr Calc Pharmacy 77.3 ml/min; Est GFR (African American) 89.2
--- NOTE | 2020-09-11 15:57 | Discharge Summary ---
Date of Service September 11, 2020 Admission HPI Per Admitting Provider The patient is a 60-year-old primarily Scottish speaking male, accompanied by his , with a past medical history including hypertension and hyperlipidemia. She reports that she was initially diagnosed with COVID-19 illness, and he underwent testing on August 31 at [facility] in [place], and was notified of a positive test on September 02. His symptoms were initially primarily that of a significant cough and runny nose, with shortness of breath. Since that time, he has had significant generalized weakness, and has been sleeping a lot more than usual over the past 3 days. Work-up in the emergency department includes following abnormal laboratories: WBC 10.96, albumin 2.9, glucose 131, ESR 57, CRP 12.30. PCR test for COVID-19 was positive in the ED tonight. Chest x-ray shows bilateral interstitial infiltrates. Principal Diagnosis COVID 19 infection Discharge Exam Constitutional WD/WN, vitals as above Eyes PERRL, conjunctivae normal, anicteric sclerae ENMT external ear and nose normal, oropharynx normal Neck trachea midline, no thyromegaly Respiratory normal respiratory effort, lungs clear to auscultation Cardiovascular RRR, no murmur, no edema Gastrointestinal (Abdomen) normal bowel sounds, soft, nontender, no hepatosplenomegaly Musculoskeletal no cyanosis or clubbing, extremities motor strength 5/5 Skin no rashes, warm and dry Neurologic patellar DTR's 2+ bilat, sensation intact and PERRL, EOMI, accommodation nl, no face palsy, no dysarthria Psychiatric A+Ox3, euthymic affect Lymphatic no cervical or axillary lymphadenopathy Discharge Data Allergies Allergy/AdvReac Type Severity Reaction Status Date / Time Sulfa (Sulfonamide Allergy Intermediate HIVES Verified 09/10/20 21:52 Antibiotics) Consultations 09/10/20 21:22 ED Decision to Admit Stat 09/11/20 00:17 Consult Case Management - Discharge Planning Routine Hospital Course (1) Pneumonia due to COVID-19 virus: initially suspected to have COVID 19 pneumonia, however, he has been on room air entire visit no respiratory distress, no cough, no dyspnea on exertion does not need to continue on dexamethasone or antibiotics recommend he continue on Zinc stay well nourished, well hydrated, get plenty of rest stay in isolation 10 days from onset of symptoms (2) Pneumonia: suspected pneumonia but now ruled out not requiring oxygen, can be discharged home (3) Hypoxia: no evidence of such, on room air, saturations 95% (4) Acute hypotension: Acute hypotension, with hypertension history- Blood pressure upon arrival was 68/46 suspected it was due to combination of dehydration and taking lisinopril resolved with IV fluids, SBP in the 120's today will have patient hold lisinopril for a week, resume on 09/17 (5) Hypertension: See above (6) Hyperlipidemia: Continue atorvastatin 20 mg at bedtime and aspirin 3 and 25 mg daily (7) Hyperkalemia: minimal elevation at 5.2 down to 4.0 after fluids continue to hold lisinopril until 09/17 Total Time Total Time Spent Total Time Spent (In Minutes): 32 minutes Total Time Includes: Examination of the Patient, Discharge Planning and Medication Reconciliation Discharge Plan Discharge Items Patient Disposition: Home - Self-Care Reason For Visit: PNEUMONIA DUE TO COVID-19 VIRUS Discharge Diagnosis: COVID 19 infection Condition on Discharge: Good Goals: stay well nourished and well hydrated, well rested Activity: Resume your previous activity Non-emergency contact: Primary Care Provider Call non-emergency contact if: you have any medication questions and your symptoms worsen Follow-up/Referrals: Frankie Gomes [Primary Care Provider] - Diet: Regular Addtl Attending Provider Instructions: Medications: - ZINC: continue to take for 5 more days to help boost immune strength - LISINOPRIL: HOLD this medication for the next week while you recover, can res ume on 09/17/20 this is because your blood pressure was low in the emergency room and your potassium was a little high, now normal COVID 19 infection: no hypoxia (low oxygen) the entire time you have been here you do NOT need further treatment with dexamethasone or antibiotics please monitor yourself closely for any worsening symptoms such as shortness of breath, fever, cough stay well hydrated, well nourished, get rest you should stay in isolation 10 days from onset of symptoms whenever that was Pending Studies at Discharge: No Stand-Alone Forms: My [employer], Smoking Cessation Medications and DC Order Prescriptions: New zinc sulfate [Orazinc] 220 (50) mg Capsule 220 mg PO QAM 5 Days Qty: 5 RF: 0 Continued atorvastatin 20 mg Tablet 20 mg PO HS RF: 0 multivitamin Tablet 1 tab PO DAILY RF: 0 aspirin 325 mg Tablet 325 mg PO DAILY RF: 0 Discontinued lisinopril 20 mg Tablet 20 mg PO QAM RF: 0 Discharge Orders: Discharge Order (Routine); Ordered 09/11/20 Ordered By: Jakub Berrios Admission Data Admit Date/Time: 09/10/20 23:07 Attending Provider: Jakub Berrios Admit Provider: Otis Wu Primary Care Provider: Frankie Gomes Other Providers: Otis Wu Coding Level of Care Code D/C Day Management >30 mins Diagnoses Pneumonia due to COVID-19 virus U07.1; J12.82 Pneumonia J18.9 Laterality: bilateral Lung location: unspecified part of lung Pneumonia type: due to unspecified organism Hypoxia R09.02 Acute hypotension I95.9 Hypertension I10 Hyperlipidemia E78.5 Hyperkalemia E87.5
[2020-09-11] MEDS ORDERED: ATORVASTATIN 20 MG TAB PO SCH (21:00)
== END 2020-09-11 16:39 | disposition home or self-care (01) | DRG 177 ==
LOC: ED 19:51 → SUATTDRO 23:07 → 2S 23:07

== ENCOUNTER 2022-10-03 13:10 | Inpatient (IN) ==
[2022-10-03] MEDS ORDERED: SODIUM CHLORIDE 0.9% 1000ML 1,000 ML IV STA (13:19)
[2022-10-03] MEDS ORDERED: dilTIAZem HCl 5 MG/ML 5 ML VIAL IV ONE (13:20)
[2022-10-03] MEDS ORDERED: dilTIAZem HCl 5 MG/ML 5 ML VIAL IV STA (13:20)
--- NOTE | 2022-10-03 13:21 | Emergency Department Note ---
Impression & Plan Atrial fibrillation with rapid ventricular response Admission ED Provider Note HPI: The patient is a 62-year-old gentleman who presents emergency department with chief complaint of new onset atrial fibrillation/tachyarrhythmia from the outpatient colonoscopy suite through [facility]. Patient reportedly was getting ready to undergo colonoscopy as an outpatient, noted to have tachycardia and EKG in the field was concerning for some type of SVT. Patient denies any chest pain, states he did not feel short of breath, did not otherwise have any symptoms. Patient was sent here to the ED for further evaluation, on arrival he states he feels well. He is hemodynamically stable but noted to have tachycardia in the 140s to 150s, EKG shows evidence of atrial fibrillation with RVR. Patient tells me he has no history of atrial fibrillation. He is otherwise in no acute distress on arrival. ROS: - Per HPI *Outpatient medications and allergy history reviewed. *Pertinent external medical records reviewed. 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: - An order was placed for continuous cardiac monitoring - Patient was noted to be in irregular rhythm with tachycardic rate consistent with atrial fibrillation with RVR EKG: (As interpreted by myself): Rate: 153 Rhythm: Atrial fibrillation Intervals: Within normal limits ST changes: No ST elevation Time: 1316 Interventions provided in ED: -IV diltiazem, IV metoprolol, IV fluid bolus Medical Decision Making: Patient presented to the emergency department with tachycardia from the outpatient setting, on arrival here to the ED he is hemodynamically stable from the standpoint of his blood pressure, he is saturating well on room air on arrival, he is noted to be tachycardic in the 140s to 150s on the monitor and EKG is consistent with atrial fibrillation with RVR. Patient has no history of atrial fibrillation. He denies any chest pain or shortness of breath. IV was established, lab work obtained, patient was placed on equity research analyst, patient was given a bolus of IV diltiazem with transient response in his heart rate into the 120s, he remained in RVR and therefore was placed on diltiazem drip and given a dose of IV metoprolol with good improvement in his heart rate into the mid 90s on reassessment on the monitor. Troponin is negative, patient denies any chest pain. Chest x-ray does not show any evidence of acute disease. Given that atrial fibrillation is new, patient will require admission, he remains in A. fib. Will defer anticoagulation to the inpatient service. [facility] hospitalist service was consulted for admission and the patient was placed for admission in improved condition. Disposition discussion held by myself with: Patient * CRITICAL CARE TIME: (45) minutes -Stabilization of tachyarrhythmia (atrial fibrillation with RVR) requiring IV rate control medications for improvement, time spent at the bedside, interpretation of diagnostic studies including EKG, arrangement of admission Diagnosis: 1. New onset atrial fibrillation with RVR Disposition: ADMIT Barney Saldana DO Emergency Medicine Past Med/Surg History Medical History (Updated 10/03/22 @ 18:34 by Barney Saldana DO) Acute hypotension Atrial fibrillation with RVR Bilateral groin pain Bilateral inguinal hernia Carpal tunnel syndrome Environmental allergies Epididymitis History of tobacco abuse 30 pack year smoking history. Quit 2011 Hyperlipidemia Hypertension Peptic ulcer disease 6yrs ago Pneumonia Surgical History History of cataract surgery LEFT. 05/14/2019. 4mg versed. no issues. History of colonoscopy 5 yrs ago History of tooth extraction Family History Other No known health problems Social History (Updated 10/03/22 @ 16:29 by Ricky Slade PA-C) Smoking Status: Former smoker Tobacco Type: Cigarettes Smoking End Date: 2011 ; 30 pack year history; Second Hand Exposure: No; Hx Alcohol Use: Yes Alcohol type: beer and wine Hx Substance Use: No Preferred Language: Nigerien Communication Ability: Effective Communication Ability Comment: Patient can effectively communicate in Portuguese Buyer Agent Required: No Beliefs That Will Affect Care: None Current Living Situation: Spouse current occupational status: employed current occupation: Works at [employer] Feels Safe at Home: Yes Assistive Devices: None Allergies Allergies Allergy/AdvReac Type Severity Reaction Status Date / Time Sulfa (Sulfonamide Allergy Intermediate HIVES Verified 10/03/22 14:54 Antibiotics) Home Meds Home Medications Medication Instructions Recorded Confirmed atorvastatin 20 mg tablet 20 mg PO DAILY 10/03/22 10/03/22 lisinopril 20 mg tablet 20 mg PO DAILY 10/03/22 10/03/22 Results & Data (ED) Vital Signs Vital Signs - 24 hr 10/03/22 13:18 10/03/22 13:45 10/03/22 13:30 Temperature 36.9 C Temperature Source Oral Pulse Rate 150 H 150 H Pulse Rate from SpO2 Sensor Pulse Rhythm Irregular Irregular Respiratory Rate 18 18 Respiratory Effort / Characteristics Non-Labored Respiratory Depth Normal Respiratory Pattern Regular Blood Pressure 130/109 H 126/90 Blood Pressure Mean 116 102 Blood Pressure Position Sitting Pulse Oximetry 95 95 Oxygen Delivery Method Room Air Room Air Sepsis Recent Fever Within 48 Hours No Sepsis New/Unexplained Change in Mental Status No Sepsis Action Taken by Nursing No Action Required 10/03/22 13:30 10/03/22 14:09 10/03/22 14:09 Temperature Temperature Source Pulse Rate 145 H 118 H Pulse Rate from SpO2 Sensor 105 H 93 H Pulse Rhythm Respiratory Rate 19 14 Respiratory Effort / Characteristics Respiratory Depth Respiratory Pattern Blood Pressure 125/91 Blood Pressure Mean 102 Blood Pressure Position Pulse Oximetry 93 98 Oxygen Delivery Method Sepsis Recent Fever Within 48 Hours Sepsis New/Unexplained Change in Mental Status Sepsis Action Taken by Nursing 10/03/22 14:35 10/03/22 14:30 10/03/22 14:30 Temperature Temperature Source Pulse Rate 137 H 130 H Pulse Rate from SpO2 Sensor 110 H Pulse Rhythm Respiratory Rate 12 Respiratory Effort / Characteristics Respiratory Depth Respiratory Pattern Blood Pressure 135/91 135/91 Blood Pressure Mean 105 Blood Pressure Position Pulse Oximetry 99 Oxygen Delivery Method Sepsis Recent Fever Within 48 Hours Sepsis New/Unexplained Change in Mental Status Sepsis Action Taken by Nursing 10/03/22 14:45 10/03/22 14:45 10/03/22 15:15 Temperature Temperature Source Pulse Rate 120 H Pulse Rate from SpO2 Sensor 101 H Pulse Rhythm Respiratory Rate 15 Respiratory Effort / Characteristics Respiratory Depth Respiratory Pattern Blood Pressure 132/97 138/111 H Blood Pressure Mean 108 120 Blood Pressure Position Pulse Oximetry 99 Oxygen Delivery Method Sepsis Recent Fever Within 48 Hours Sepsis New/Unexplained Change in Mental Status Sepsis Action Taken by Nursing 10/03/22 15:15 10/03/22 15:17 10/03/22 15:17 Temperature Temperature Source Pulse Rate 141 H 126 H Pulse Rate from SpO2 Sensor 97 H 81 Pulse Rhythm Respiratory Rate 22 10 L Respiratory Effort / Characteristics Respiratory Depth Respiratory Pattern Blood Pressure 110/87 Blood Pressure Mean 94 Blood Pressure Position Pulse Oximetry 97 97 Oxygen Delivery Method Sepsis Recent Fever Within 48 Hours Sepsis New/Unexplained Change in Mental Status Sepsis Action Taken by Nursing 10/03/22 15:30 10/03/22 15:30 10/03/22 15:45 Temperature Temperature Source Pulse Rate 124 H 103 H Pulse Rate from SpO2 Sensor 104 H Pulse Rhythm Respiratory Rate 20 20 Respiratory Effort / Characteristics Respiratory Depth Respiratory Pattern Blood Pressure 117/90 Blood Pressure Mean 99 Blood Pressure Position Pulse Oximetry 97 Oxygen Delivery Method Sepsis Recent Fever Within 48 Hours Sepsis New/Unexplained Change in Mental Status Sepsis Action Taken by Nursing 10/03/22 15:45 Temperature Temperature Source Pulse Rate Pulse Rate from SpO2 Sensor Pulse Rhythm Respiratory Rate Respiratory Effort / Characteristics Respiratory Depth Respiratory Pattern Blood Pressure 123/83 Blood Pressure Mean 96 Blood Pressure Position Pulse Oximetry Oxygen Delivery Method Sepsis Recent Fever Within 48 Hours Sepsis New/Unexplained Change in Mental Status Sepsis Action Taken by Nursing Laboratory Data 10/03/22 13:40 10/03/22 13:40 Lab Results 10/03/22 10/03/22 10/03/22 Range/Units 13:40 13:40 13:40 WBC 6.97 (4.8-10.8) K/ul RBC 5.70 (4.70-6.10) M/uL Hgb 16.9 (14.0-18.0) g/dl Hct 48.6 (42.0-52.0) % MCV 85.3 (80.0-100.0) fL MCH 29.6 (25.0-34.0) pg MCHC 34.8 (32.0-36.0) g/dL RDW Std Deviation 37.3 (36.4-46.3) fL RDW Coeff of Luis 12.1 (11.5-14.5) % Plt Count 226 (130-400) K/uL MPV 9.8 (9.4-12.4) fL Immature Gran % (Auto) 0.4 % Neut % (Auto) 60.6 % Lymph % (Auto) 22.1 % [place] % (Auto) 9.0 % Eos % (Auto) 7.2 % Baso % (Auto) 0.7 % Neut # (Auto) 4.22 (1.40-6.50) K/uL Lymph # (Auto) 1.54 (1.2-3.4) K/uL [place] # (Auto) 0.63 H (0.11-0.59) K/uL Eos # (Auto) 0.50 (0-0.50) K/uL Baso # (Auto) 0.05 (0-0.2) K/uL Immature Gran # (Auto) 0.03 (0.01-0.20) K/uL PT 10.9 (9.0-12.0) Seconds INR 1.0 (0.9-1.1) APTT 24.5 (21.0-31.0) Seconds PTT Ratio 0.9 Sodium 135 L (136-145) mmol/L Potassium 4.5 (3.5-5.1) mmol/L Chloride 103 (98-107) mmol/L Carbon Dioxide 25 (21-32) mmol/L Anion Gap 7 (3-11) BUN 12 (6-23) mg/dl Creatinine 1.09 (0.6-1.4) mg/dl Est Cr Clr Drug Dosing 78.5 ml/min Est GFR ( Amer) 85.1 ml/min Est GFR (Non-Af Amer) 73.4 ml/min BUN/Creatinine Ratio 11.0 (10-20) Glucose 100 H (70-99(Fasting)) mg/dl Calcium 9.1 (8.5-10.1) mg/dl Magnesium 2.1 (1.7-2.4) mg/dl Total Bilirubin 0.7 (0.2-1.0) mg/dl AST 29 (13-39) U/L ALT 31 (7-52) U/L Alkaline Phosphatase 84 (34-104) U/L Troponin I High Sens 5.8 (0-20) pg/ml Total Protein 7.2 (6.0-8.3) gm/dl Albumin 4.5 (3.4-5.0) gm/dl Globulin 2.7 (2.5-4.0) gm/dl Albumin/Globulin Ratio 1.7 (0.9-2) Lipase 41 (11-82) U/L TSH (0.300-4.500) uIu/ml SARS-CoV-2, RNA, NAAT (NEGATIVE) 10/03/22 10/03/22 Range/Units 13:40 13:50 WBC (4.8-10.8) K/ul RBC (4.70-6.10) M/uL Hgb (14.0-18.0) g/dl Hct (42.0-52.0) % MCV (80.0-100.0) fL MCH (25.0-34.0) pg MCHC (32.0-36.0) g/dL RDW Std Deviation (36.4-46.3) fL RDW Coeff of Luis (11.5-14.5) % Plt Count (130-400) K/uL MPV (9.4-12.4) fL Immature Gran % (Auto) % Neut % (Auto) % Lymph % (Auto) % [place] % (Auto) % Eos % (Auto) % Baso % (Auto) % Neut # (Auto) (1.40-6.50) K/uL Lymph # (Auto) (1.2-3.4) K/uL [place] # (Auto) (0.11-0.59) K/uL Eos # (Auto) (0-0.50) K/uL Baso # (Auto) (0-0.2) K/uL Immature Gran # (Auto) (0.01-0.20) K/uL PT (9.0-12.0) Seconds INR (0.9-1.1) APTT (21.0-31.0) Seconds PTT Ratio Sodium (136-145) mmol/L Potassium (3.5-5.1) mmol/L Chloride (98-107) mmol/L Carbon Dioxide (21-32) mmol/L Anion Gap (3-11) BUN (6-23) mg/dl Creatinine (0.6-1.4) mg/dl Est Cr Clr Drug Dosing ml/min Est GFR ( Amer) ml/min Est GFR (Non-Af Amer) ml/min BUN/Creatinine Ratio (10-20) Glucose (70-99(Fasting)) mg/dl Calcium (8.5-10.1) mg/dl Magnesium (1.7-2.4) mg/dl Total Bilirubin (0.2-1.0) mg/dl AST (13-39) U/L ALT (7-52) U/L Alkaline Phosphatase (34-104) U/L Troponin I High Sens (0-20) pg/ml Total Protein (6.0-8.3) gm/dl Albumin (3.4-5.0) gm/dl Globulin (2.5-4.0) gm/dl Albumin/Globulin Ratio (0.9-2) Lipase (11-82) U/L TSH 1.379 (0.300-4.500) uIu/ml SARS-CoV-2, RNA, NAAT NEGATIVE (NEGATIVE) Administered Medications Diltiazem HCl 125 mg/ Dextrose 125 mls @ 5 mls/hr IV .Q24H [facility]; Protocol Stop: 11/02/22 14:29 Last Titration: 10/03/22 16:04 Dose: 10 mg/hr, 10 mls/hr Documented By: YOGESH Co-signed By: SHUKRI Admin: 10/03/22 14:47 Dose: 5 mg/hr, 5 mls/hr Documented By: FANNY Co-signed By: TAMY Discontinued Medications Apixaban (Apixaban 5 Mg Tablet) 5 mg PO NOW ONE Stop: 10/03/22 17:01 Last Admin: 10/03/22 17:37 Dose: 5 mg Documented By: SOLIS Diltiazem HCl (Diltiazem Hcl 5 Mg/Ml 5 Ml Vial) 15 mg IV NOW STA Stop: 10/03/22 13:21 Last Admin: 10/03/22 13:22 Dose: 15 mg Documented By: FANNY Co-signed By: TAMY Diltiazem HCl (Diltiazem Hcl 5 Mg/Ml 5 Ml Vial) Confirm Administered Dose 25 mg IV .STK-MED ONE Stop: 10/03/22 13:21 Last Admin: 10/03/22 13:55 Dose: Not Given Documented By: FANNY Sodium Chloride (Nss 1000ml) 1,000 mls @ 999 mls/hr IV .Q1H1M STA Stop: 10/03/22 14:19 Last Infusion: 10/03/22 16:10 Dose: 0 mls/hr Documented By: Admin: 10/03/22 13:54 Dose: 999 mls/hr Documented By: FANNY Metoprolol Tartrate (Metoprolol Tartrate 1 Mg/Ml Vial) 5 mg IV NOW STA Stop: 10/03/22 14:23 Last Admin: 10/03/22 14:35 Dose: 5 mg Documented By: SOLIS Metoprolol Tartrate (Metoprolol Tartrate 25 Mg Tab) 25 mg PO ONE STA Stop: 10/03/22 15:21 Last Admin: 10/03/22 15:55 Dose: 25 mg Documented By: SOLIS Miscellaneous (Stat Iv Infusion Titration Per Protocol) 1 each N/A NOW STA Stop: 10/03/22 14:23 Last Admin: 10/03/22 14:48 Dose: 1 each Documented By: FANNY Imaging Data Radiologist's Impression: Chest X-Ray 10/03/22 13:19 SINGLE VIEW CHEST CLINICAL HISTORY: Atypical chest pain. FINDINGS: An AP, portable, upright chest radiograph is compared to study dated 09/10/2020. The examination is degraded by portable technique and apical lordotic positioning. The cardiomediastinal silhouette is unremarkable. The lungs and pleural spaces are clear. No pneumothorax is seen. The bony thorax is grossly intact. IMPRESSION: No active disease in the chest. ACT 112: Negative or not required by law. Electronically signed by: Ricky Escamilla M.D. 10/03/2022 1:32 PM Discharge Plan Visit Data Chief Complaint: Tachycardia Stated Complaint: TACHYCARDIA ED Provider: Barney Saldana Discharge Problem: Atrial fibrillation with rapid ventricular response Patient Disposition: Admitted As Inpatient
--- NOTE | 2022-10-03 13:33 | XRay Report ---
SINGLE VIEW CHEST CLINICAL HISTORY: Atypical chest pain. FINDINGS: An AP, portable, upright chest radiograph is compared to study dated 09/10/2020. The examinat ion is degraded by portable technique and apical lordotic positioning. The cardiomediastinal silhouet te is unremarkable. The lungs and pleural spaces are clear. No pneumothorax is seen. The bony thorax is grossly intact. IMPRESSION: No active disease in the chest. ACT 112: Negative or not required by law. Electronically signed by: Ricky Escamilla M.D. 10/03/2022 1:32 PM
[2022-10-03 13:56] LABS: Basophils # (auto) 0.05 K/uL (0-0.2); Basophils % (auto) 0.7 %; Eosinophils % (auto) 7.2 %; Hematocrit (blood only) 48.6 % (42.0-52.0); Hemoglobin 16.9 g/dl (14.0-18.0); Immature Granulocytes # (auto) 0.03 K/uL (0.01-0.20); Immature Granulocytes % (auto) 0.4 %; Lymphocytes # (auto) 1.54 K/uL (1.2-3.4); Lymphocytes % (auto) 22.1 %; Mean Corpuscular Hemoglobin 29.6 pg (25.0-34.0); Mean Corpuscular Hgb Conc 34.8 g/dL (32.0-36.0); Mean Corpuscular Volume 85.3 fL (80.0-100.0); Mean Platelet Volume 9.8 fL (9.4-12.4); Monocytes # (auto) 0.63 K/uL (0.11-0.59); Neutrophils # (auto) 4.22 K/uL (1.40-6.50); Neutrophils % (auto) 60.6 %; Platelet Count 226 K/uL (130-400); RDW Coefficient of Variation 12.1 % (11.5-14.5); RDW Standard Deviation 37.3 fL (36.4-46.3); White Blood Count 6.97 K/ul (4.8-10.8)
[2022-10-03 14:10] LABS: Partial Thromboplastin Ratio 0.9; Partial Thromboplastin Time 24.5 Seconds (21.0-31.0); Prothrombin Time 10.9 Seconds (9.0-12.0)
[2022-10-03 14:19] LABS: Creatinine Clr Calc Pharmacy 78.5 ml/min
[2022-10-03] MEDS ORDERED: STAT IV Infusion **Titration per Protocol STA (14:22)
[2022-10-03] MEDS ORDERED: METOPROLOL TARTRATE 1 MG/ML VIAL IV STA (14:22)
[2022-10-03 14:24] LABS: Troponin I High Sensitivity 5.8 pg/ml (0-20)
[2022-10-03] MEDS ORDERED: dilTIAZem HCL 125 MG in DEXTROSE 5% 100 ML IV SCH (14:30)
--- NOTE | 2022-10-03 14:47 | Electrocardiogram Report ---
Test Reason : Blood Pressure : / mmHG Vent. Rate : 153 BPM Atrial Rate : 163 BPM P-R Int : 000 ms QRS Dur : 078 ms QT Int : 260 ms P-R-T Axes : 000 055 056 degrees QTc Int : 415 ms Atrial fibrillation with rapid ventricular response Nonspecific ST abnormality Abnormal ECG When compared with ECG of 10-SEP-2020 20:21, Significant changes have occurred Confirmed by Duncan Cho ([id number]) on 10/03/2022 2:47:16 PM Referred By: REFERRED SELF Confirmed By:Duncan Cho
[2022-10-03 15:01] LABS: Albumin Level 4.5 gm/dl (3.4-5.0); Bilirubin,Total 0.7 mg/dl (0.2-1.0); Calcium 9.1 mg/dl (8.5-10.1); Magnesium 2.1 mg/dl (1.7-2.4); Potassium 4.5 mmol/L (3.5-5.1)
[2022-10-03 15:07] LABS: Albumin Globulin Ratio 1.7 (0.9-2); Est GFR (African American) 85.1 ml/min; Est GFR (Non-African American) 73.4 ml/min; Globulin 2.7 gm/dl (2.5-4.0); Total Protein 7.2 gm/dl (6.0-8.3)
[2022-10-03] MEDS ORDERED: METOPROLOL TARTRATE 25 MG TAB PO STA (15:20)
--- NOTE | 2022-10-03 16:32 | History & Physical Report ---
Date of Service October 03, 2022 Assessment & Plan (1) Atrial fibrillation with RVR: Plan: New onset atrial fibrillation with RVR identified at preop examination for colonoscopy Patient reports that he has been completely asymptomatic. No awareness of palpitations Patient denies previous history of atrial fibrillation Patient initially given metoprolol tartrate 5 mg IV with limited response. Then initiated on diltiazem drip at 5 mg/h Patient given 1 dose of metoprolol tartrate 25 mg p.o. This will be continued BID Patient continued in atrial fibrillation with a rate in the 120s. Does diltiazem drip was titrated up to 10 mg/h Check echocardiogram to rule out anatomical defect and patent foramen ovale Admit to PCU telemetry for monitoring Will start patient on Eliquis for anticoagulation No indication for cardiology consult. Would recommend outpatient cardiology appointment (2) Hyperlipidemia: Plan: Continue atorvastatin Outpatient monitoring (3) Hypertension: Plan: Patient currently is on lisinopril. Will hold this as we titrate diltiazem and metoprolol Echocardiogram as above for atrial fibrillation Outpatient management with PCP (4) History of tobacco abuse: Plan: [id number] smoking history Patient quit smoking in 2011 PCP may want to consider low-dose CT surveillance annually Plan Please refer to Dr. Bailon's addendum for further recommendations and corrections Monitor on telemetry Eliquis for anticoagulation History of Present Illness Chief Complaint: Incidental finding of atrial fibrillation with rapid ventricular response Primary Care Provider: Frankie Gomes Attending: Dr. Bailon This is a 62-year-old [place]ym[place] male who works at [employer]. PMH includes HTN, dyslipidemia, past tobacco abuse history. He was presenting for colonoscopy and found to have atrial fibrillation with rapid ventricular response. He was transferred to the emergency department and found to be tachycardic and given 5 mg of IV metoprolol. There is little effect with the beta-lyssa so patient was started on diltiazem drip. Patient continues to be tachycardic with a heart rate of 123. He has no chest pain or tightness. He has no lightheadedness or dizziness. No change in neurological function. No headache. No shortness of breath. No chest pain. No other acute complaints. Patient denies any previous history of atrial fibrillation or cardiac disease other than hypertension. He does consume alcohol but has not had any excessive intake or binge drinking. Electrolytes and TSH are within normal limits. Covid Vaccination X 1 plus 1 booster. Covid positive in the past but only supportive treatment needed 30 pack year smoking history. Quit smoking 10 years ago. Allergies Allergy/AdvReac Type Severity Reaction Status Date / Time Sulfa (Sulfonamide Allergy Intermediate HIVES Verified 10/03/22 14:54 Antibiotics) Home Medications Medication Instructions Recorded Confirmed Type atorvastatin 20 mg tablet 20 mg PO DAILY 10/03/22 10/03/22 History lisinopril 20 mg tablet 20 mg PO DAILY 10/03/22 10/03/22 History Past Med/Surg History Medical History (Updated 10/03/22 @ 18:34 by Barney Saldana DO) Acute hypotension Atrial fibrillation with RVR Bilateral groin pain Bilateral inguinal hernia Carpal tunnel syndrome Environmental allergies Epididymitis History of tobacco abuse 30 pack year smoking history. Quit 2011 Hyperlipidemia Hypertension Peptic ulcer disease 6yrs ago Pneumonia Surgical History History of cataract surgery LEFT. 05/14/2019. 4mg versed. no issues. History of colonoscopy 5 yrs ago History of tooth extraction Family History Other No known health problems Social History (Updated 10/03/22 @ 16:29 by Ricky Slade PA-C) Smoking Status: Former smoker Tobacco Type: Cigarettes Smoking End Date: 10 years; Second Hand Exposure: No; Hx Alcohol Use: Yes Alcohol type: beer and wine Hx Substance Use: No Preferred Language: [place] Islander Communication Ability: Effective Communication Ability Comment: Patient can effectively communicate in [place] Islander Cartridge Feeder Required: No Beliefs That Will Affect Care: None Current Living Situation: Family current occupational status: employed current occupation: Works at [employer] Feels Safe at Home: Yes Safety Concerns: Feels Safe At This Time Assistive Devices: Glasses Assistive Devices Comment: partial dentures Review of Systems Review of Systems: A total of 10 systems was reviewed and is negative other than as listed in the HPI Physical Exam Physical Exam: GENERAL : No acute distress EYES: No icterus, gaze conjugate NOSE: No evidence of epistaxis MOUTH: No lesions or candidiasis NECK: Supple LUNGS: CTA B/L, no wheezes, rales or rhonchi HEART: Irregular, irregular, rate in the 120s. No murmur gallop or rub appreciated. ABDOMEN: Soft, NT, ND, BS Present EXTREMITIES: No LE edema, pedal pulses intact NEURO: A&OX3. Pupils equal round react to light. Strength is equal and appropriate bilateral upper and lower extremities. Gaze is conjugate. Tongue is midline. Appropriate response during interview. No evidence of focal neurological deficit. Results & Data Results & Data ([facility]) Vital Signs (Past 12 Hours) Vital Signs Temp Pulse Pulse Resp BP BP Pulse Ox 10/03/22 16:06 127 H 20 132/93 98 10/03/22 15:17 110/87 10/03/22 15:17 126 H 10 L 97 10/03/22 15:15 141 H 22 97 10/03/22 15:15 138/111 H 10/03/22 14:45 120 H 15 99 10/03/22 14:45 132/97 10/03/22 14:30 130 H 12 99 10/03/22 14:30 135/91 10/03/22 14:35 137 H 135/91 10/03/22 14:09 118 H 14 98 10/03/22 14:09 125/91 10/03/22 13:30 145 H 19 93 10/03/22 13:30 126/90 10/03/22 13:45 150 H 18 95 10/03/22 13:18 36.9 C 150 H 18 130/109 H 95 O2 Del Method 10/03/22 16:06 Room Air 10/03/22 15:17 10/03/22 15:17 10/03/22 15:15 10/03/22 15:15 10/03/22 14:45 10/03/22 14:45 10/03/22 14:30 10/03/22 14:30 10/03/22 14:35 10/03/22 14:09 10/03/22 14:09 10/03/22 13:30 10/03/22 13:30 10/03/22 13:45 Room Air 10/03/22 13:18 Room Air Critical Care Results & Data Vital Signs (Past 12 Hours) Vital Signs Temp Pulse Pulse Resp BP BP Pulse Ox 10/03/22 16:06 127 H 20 132/93 98 10/03/22 15:17 110/87 10/03/22 15:17 126 H 10 L 97 10/03/22 15:15 141 H 22 97 10/03/22 15:15 138/111 H 10/03/22 14:45 120 H 15 99 10/03/22 14:45 132/97 10/03/22 14:30 130 H 12 99 10/03/22 14:30 135/91 10/03/22 14:35 137 H 135/91 10/03/22 14:09 118 H 14 98 10/03/22 14:09 125/91 10/03/22 13:30 145 H 19 93 10/03/22 13:30 126/90 10/03/22 13:45 150 H 18 95 10/03/22 13:18 36.9 C 150 H 18 130/109 H 95 O2 Del Method 10/03/22 16:06 Room Air 10/03/22 15:17 10/03/22 15:17 10/03/22 15:15 10/03/22 15:15 10/03/22 14:45 10/03/22 14:45 10/03/22 14:30 10/03/22 14:30 10/03/22 14:35 10/03/22 14:09 10/03/22 14:09 10/03/22 13:30 10/03/22 13:30 10/03/22 13:45 Room Air 10/03/22 13:18 Room Air Lab & Micro Results (Past 24 Hours) RBC 5.18 M/uL (4.70-6.10) 10/04/22 WBC 6.37 K/ul (4.8-10.8) 10/04/22 Hgb 15.5 g/dl (14.0-18.0) 10/04/22 Hct 44.1 % (42.0-52.0) 10/04/22 MCV 85.1 fL (80.0-100.0) 10/04/22 MCH 29.9 pg (25.0-34.0) 10/04/22 MCHC 35.1 g/dL (32.0-36.0) 10/04/22 RDW Standard Deviation 38.4 fL (36.4-46.3) 10/04/22 RDW Coefficient of Variation 12.3 % (11.5-14.5) 10/04/22 Plt Count 220 K/uL (130-400) 10/04/22 MPV 9.9 fL (9.4-12.4) 10/04/22 Neutrophils (%) (Auto) 60.6 % 10/03/22 Lymphocytes (%) (Auto) 22.1 % 10/03/22 Monocytes # (Auto) 0.63 K/uL (0.11-0.59) H 10/03/22 Eosinophils # (Auto) 0.50 K/uL (0-0.50) 10/03/22 Immature Granulocyte % (Auto) 0.4 % 10/03/22 Neutrophils # (Auto) 4.22 K/uL (1.40-6.50) 10/03/22 Lymphocytes # (Auto) 1.54 K/uL (1.2-3.4) 10/03/22 Monocytes # (Auto) 0.63 K/uL (0.11-0.59) H 10/03/22 Eosinophils # (Auto) 0.50 K/uL (0-0.50) 10/03/22 Basophils # (Auto) 0.05 K/uL (0-0.2) 10/03/22 Immature Granulocyte # (Auto) 0.03 K/uL (0.01-0.20) 3 Na 139 mmol/L (136-145) 10/04/22 K 4.7 mmol/L (3.5-5.1) 10/04/22 Cl 111 mmol/L (98-107) H 10/04/22 CO2 23 mmol/L (21-32) 10/04/22 Anion Gap 5 (3-11) 10/04/22 BUN 17 mg/dl (6-23) 10/04/22 Creatinine 1.08 mg/dl (0.6-1.4) 10/04/22 Estimated GFR ( Amer) 86.0 ml/min 10/04/22 Estimated GFR (Non-Af Amer) 74.2 ml/min 10/04/22 BUN/Creatinine Ratio 15.7 (10-20) 10/04/22 Glu 93 mg/dl (70-99(Fasting)) 10/04/22 Ca 8.8 mg/dl (8.5-10.1) 10/04/22 Total Bilirubin 0.7 mg/dl (0.2-1.0) 10/03/22 AST 29 U/L (13-39) 10/03/22 ALT 31 U/L (7-52) 10/03/22 Alkaline Phosphatase 84 U/L (34-104) 10/03/22 TP 7.2 gm/dl (6.0-8.3) 10/03/22 Albumin 4.5 gm/dl (3.4-5.0) 10/03/22 Globulin 2.7 gm/dl (2.5-4.0) 10/03/22 Albumin/Globulin Ratio 1.7 (0.9-2) 10/03/22 Mg 2.2 mg/dl (1.7-2.4) 10/04/22 05:45 Calcium Level 8.8 mg/dl (8.5-10.1) 10/04/22 05:45 Prothromb Time International Ratio 1.0 (0.9-1.1) 10/03/22 13:4 0 Diagnostic Findings (Past 24 Hours) Chest X-Ray 10/03/22 13:19 SINGLE VIEW CHEST CLINICAL HISTORY: Atypical chest pain. FINDINGS: An AP, portable, upright chest radiograph is compared to study dated 09/10/2020. The examination is degraded by portable technique and apical lordotic positioning. The cardiomediastinal silhouette is unremarkable. The lungs and pleural spaces are clear. No pneumothorax is seen. The bony thorax is grossly intact. IMPRESSION: No active disease in the chest. ACT 112: Negative or not required by law. Electronically signed by: Ricky Escamilla M.D. 10/03/2022 1:32 PM I & O Totals 24 Hours 10/02/22 10/03/22 10/04/22 06:59 06:59 06:59 Intake Total 1406.417 / 1406.417 Balance 1406.417 / 1406.417 Cumulative 10/03/22 12:53 thru 10/03/22 16:10 Intake Total 1406.417 Balance 1406.417 RT Ventilator Mngmt (Last Documented) Ventilator Ordered Settings Respiratory Rate 20 10/03/22 16:06 Ventilator - PT Measurements Respiratory Rate 20 Code Status & VTE Plan Code Status Full resuscitation: Level I VTE Prophylaxis Plan VTE Prophylaxis will be ordered: Yes Supervising Physician Co-Signing Physician Notes I personally saw and examined the patient. I verified all mccarty points and agree with Ricky Slade PA-C with the following exceptions and/or additions: 62 year old male admission for asymptomatic a. fib RVR found prior to routine screening colonoscopy. No history of GI bleed. No history of atrial fibrillation or alcohol use. O/E HS tachycardia, irregular rhythm, mild bibasal crackles, Abdo SNT A/P A. fib RVR - TSH WNL, TTE pending. metoprolol 25mg PO BID, dilatizem IV drip uptitrate to 10mg/hr. [id number] - 1. Will start o Eliquis 5mg PO BID. PG Care Time/CCT Total # of Minutes Spent Total Time Spent with Patient: Total time spent is greater than 50% in coordination of care (as documented) at patient's floor/unit and/or counseling patient: 60 minutes Coding Level of Care Code 85108 INT INP/OBS CARE 2/55MIN Diagnoses Atrial fibrillation with RVR I48.91 Hyperlipidemia E78.5 Hypertension I10 History of tobacco abuse Z87.891 Time Spent (min) 60
[2022-10-03] MEDS ORDERED: APIXABAN 5 MG TABLET PO ONE (17:00)
[2022-10-03] MEDS ORDERED: ACETAMINOPHEN 325 MG TAB PO PRN (18:28)
[2022-10-03] MEDS ORDERED: ONDANSETRON INJ 2 MG/ML 2 ML VIAL IV PRN (18:28)
[2022-10-03] MEDS ORDERED: ALUMINUM/MAGNESIUM SUSP 30 ML UDC PO PRN (18:28)
[2022-10-03] MEDS ORDERED: MAGNESIUM HYDROXIDE SUSP 30 ML UDC PO PRN (18:28)
[2022-10-03] MEDS ORDERED: METOPROLOL TARTRATE 50 MG TAB PO SCH (21:00)
[2022-10-03] MEDS ORDERED: METOPROLOL TARTRATE 25 MG TAB PO SCH (21:00)
[2022-10-03] MEDS: APIXABAN 5 MG TABLET PO SCH (21:04)
[2022-10-04 06:19] LABS: Hematocrit (blood only) 44.1 % (42.0-52.0); Hemoglobin 15.5 g/dl (14.0-18.0); Mean Corpuscular Hemoglobin 29.9 pg (25.0-34.0); Mean Corpuscular Hgb Conc 35.1 g/dL (32.0-36.0); Mean Corpuscular Volume 85.1 fL (80.0-100.0); Mean Platelet Volume 9.9 fL (9.4-12.4); Platelet Count 220 K/uL (130-400); RDW Coefficient of Variation 12.3 % (11.5-14.5); RDW Standard Deviation 38.4 fL (36.4-46.3); Red Blood Count 5.18 M/uL (4.70-6.10); White Blood Count 6.37 K/ul (4.8-10.8)
[2022-10-04 06:33] LABS: BUN Creatinine Ratio 15.7 (10-20); Calcium 8.8 mg/dl (8.5-10.1); Creatinine Clr Calc Pharmacy 81.5 ml/min; Est GFR (Non-African American) 74.2 ml/min; Magnesium 2.2 mg/dl (1.7-2.4); Potassium 4.7 mmol/L (3.5-5.1)
[2022-10-04] MEDS: APIXABAN 5 MG TABLET PO SCH (07:54)
[2022-10-04] MEDS ORDERED: lisinopril 20 MG TAB PO SCH (09:00)
[2022-10-04] MEDS ORDERED: ATORVASTATIN 20 MG TAB PO SCH (09:00)
[2022-10-04] MEDS ORDERED: METOPROLOL TARTRATE 25 MG TAB PO SCH (09:00)
--- NOTE | 2022-10-04 10:04 | XCELERA ---
[id number]
--- NOTE | 2022-10-04 10:56 | Hospitalist Progress Note ---
Date of Service October 04, 2022 Assessment & Plan (1) Atrial fibrillation with RVR: Plan: New onset atrial fibrillation with RVR identified at preop examination for colonoscopy 10/03/22 Patient reports that he has been completely asymptomatic. No awareness of palpitations Patient denies previous history of atrial fibrillation Patient initially given metoprolol tartrate 5 mg IV with limited response. Then initiated on diltiazem drip at 5 mg/h Patient started on metoprolol tartrate 25mg one BID Patient continued in atrial fibrillation with a rate in the 120s. Then the diltiazem drip was titrated up to 10 mg/h Admitted to PCU telemetry for monitoring Started on Eliquis for anticoagulation Cardiology consulted Echo revealed LV systolic function normal, EF 55-60%, no regional wall motion abnormalities, mild TR, PFO not assessed Currently patient is in regular rate and rhythm (2) Hyperlipidemia: Plan: Continue atorvastatin Outpatient monitoring (3) Hypertension: Plan: Patient was on Lisinopril and this was held while titrating diltiazem and metoprolol Echocardiogram as above for atrial fibrillation (4) History of tobacco abuse: Plan: 65-nwtg-ynps smoking history Patient quit smoking in 2011 PCP may want to consider low-dose CT surveillance annually Plan Monitor on telemetry Eliquis for anticoagulation Also encourage ambulation Await cardiology consult Admission and Anticipated Discharge Date Admission Date: October 03, 2022 Subjective Patient was resting ain bed and awoke to his name. He has no complaints Review of Systems Constitutional: no fever, no chills, no anorexia, no weight loss and no weight gain Eyes: + corrective lenses; no blind spots, no discharge and no eye pain Ear, Nose, Mouth, Throat: no nasal congestion, no nasal discharge and no post nasal drip Respiratory: no cough, no chest congestion and no dyspnea Cardiovascular: no chest pain, no dyspnea, no orthopnea, no lightheadedness, no syncope, no edema, no calf pain and no claudication Gastrointestinal: no abdominal pain, no early satiety, no nausea, no vomiting and no change in bowel habits Genitourinary: no dysuria, no urinary frequency or no urinary hesitancy Integumentary: no rash, no lesions and no new lesions Neurologic: no falls, no paralysis, no numbness and no syncope Psychiatric: no depression, no irritability and no anxiety Allergy / Immunological: no lip swelling, no urticaria, no cough and no dyspnea Physical Exam Constitutional: WD/WN, vitals as above Neck: trachea midline, no thyromegaly no neck crepitus and neck nontender Respiratory: normal respiratory effort, lungs clear to auscultation Cardiovascular: Rate/Rhythm: regular rate and regular rhythm Heart Sounds: normal S1 and normal S2; no murmur Gastrointestinal (Abdomen): normal bowel sounds, soft, nontender, no hepatosplenomegaly Skin: no rashes, warm and dry Psychiatric: A+Ox3, euthymic affect Results & Data Results & Data ([facility]) Vital Signs (Past 12 Hours) Vital Signs Temp Pulse Resp BP BP Pulse Ox O2 Del Method 10/04/22 08:07 36.6 C 55 L 18 113/75 98 Room Air 10/04/22 03:14 36.6 C 61 18 103/65 98 Room Air 10/03/22 23:24 36.6 C 52 L 16 97/59 L 97 Room Air Laboratory Results Abnormal lab results 10/03/22 10/03/22 10/04/22 Range/Units 13:40 13:40 05:45 Izard # (Auto) 0.63 H (0.11-0.59) K/uL Sodium 135 L (136-145) mmol/L Chloride 111 H (98-107) mmol/L Glucose 100 H (70-99(Fasting)) mg/dl Diagnostic Findings Chest X-Ray 10/03/22 13:19 SINGLE VIEW CHEST CLINICAL HISTORY: Atypical chest pain. FINDINGS: An AP, portable, upright chest radiograph is compared to study dated 09/10/2020. The examination is degraded by portable technique and apical lordotic positioning. The cardiomediastinal silhouette is unremarkable. The lungs and pleural spaces are clear. No pneumothorax is seen. The bony thorax is grossly intact. IMPRESSION: No active disease in the chest. ACT 112: Negative or not required by law. Electronically signed by: Ricky Escamilla M.D. 10/03/2022 1:32 PM PG Care Time/CCT Total # of Minutes Spent Total Time Spent with Patient: Total time spent is greater than 50% in coordination of care (as documented) at patient's floor/unit and/or counseling patient: Coding Diagnoses Atrial fibrillation with RVR I48.91 Hyperlipidemia E78.5 Hypertension I10 History of tobacco abuse Z87.891
[2022-10-04 11:34] VITALS: BP 126/81; TEMP 97.7; O2SAT 96
--- NOTE | 2022-10-04 11:55 | Cardiology Consultation ---
Date of Consultation October 04, 2022 Assessment & Plan (1) Atrial fibrillation with RVR: -patient's atrial dysrhythmia is completely asymptomatic. -the converted back to sinus rhythm last evening. -agree with metoprolol tartrate 25 mg b.i.d. -his CHADSVasc score is"1" placing him on the borderline for long-term anticoagulation. -would discharged on Eliquis 5 mg b.i.d. for now. -follow-up in my office in 1-2 weeks. -stable for hospital discharge. (2) Hypertension: -adequate control on current regimen. (3) Hyperlipidemia: -continue atorvastatin. History of Present Illness Attending Physician: Herminio Morin History of Present Illness Mr. Delaney is a 62-year-old male admitted yesterday with newly diagnosed atrial fibrillation a this consultation was ordered to assist his cardiac management. The patient was in his usual state of until yesterday. While awaiting his colonoscopy, he was discovered the patient was in atrial fibrillation with rapid ventricular response. He was completely asymptomatic denying palpitations and exercise intolerance. He was sent to the emergency room and started on intravenous metoprolol and intravenous diltiazem. He converted to sinus rhythm during his transfer from the emergency room up to the telemetry unit. The patient has never known of atrial fibrillation previously. We have discussed management of his atrial dysrhythmia to include a beta-lyssa and long-term anticoagulation. Although the patient does not follow a routine exercise program, he is active on a daily basis caring for his home and property. He was able to shovel snow earlier this week without difficulty. Currently, the patient is resting comfortably in bed and without complaints. Past medical and surgical history 1. Hypertension 2. Hypercholesterolemia 3. Paroxysmal atrial fibrillation-September 2022 4. Peptic ulcer disease 5. Seasonal allergies 6. Carpal tunnel syndrome 7. 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 Allergies Allergy/AdvReac Type Severity Reaction Status Date / Time Sulfa (Sulfonamide Allergy Intermediate HIVES Verified 10/03/22 14:54 Antibiotics) Home Medications Medication Instructions Recorded Confirmed Type atorvastatin 20 mg tablet 20 mg PO DAILY 10/03/22 10/03/22 History lisinopril 20 mg tablet 20 mg PO DAILY 10/03/22 10/03/22 History Patient History Medical History (Updated 10/03/22 @ 18:34 by Barney Saldana DO) Acute hypotension Atrial fibrillation with RVR Bilateral groin pain Bilateral inguinal hernia Carpal tunnel syndrome Environmental allergies Epididymitis History of tobacco abuse 30 pack year smoking history. Quit 2011 Hyperlipidemia Hypertension Peptic ulcer disease 6yrs ago Pneumonia Surgical History History of cataract surgery LEFT. 05/14/2019. 4mg versed. no issues. History of colonoscopy 5 yrs ago History of tooth extraction Family History Other No known health problems Social History (Updated 10/03/22 @ 16:29 by Ricky Slade PA-C) Smoking Status: Former smoker Tobacco Type: Cigarettes Smoking End Date: 10 years; Second Hand Exposure: No; Hx Alcohol Use: Yes Alcohol type: beer and wine Hx Substance Use: No Preferred Language: [place]er Communication Ability: Effective Communication Ability Comment: Patient can effectively communicate in [place] Islander Scientific Affairs Manager Required: No Beliefs That Will Affect Care: None Current Living Situation: Family current occupational status: employed current occupation: Works at [employer] Feels Safe at Home: Yes Safety Concerns: Feels Safe At This Time Assistive Devices: Glasses Assistive Devices Comment: partial dentures Physical Exam Physical Exam: In general this is a well-developed well-nourished white male in no acute distress. HEENT exam is negative. Neck is supple with full carotid upstrokes. There are no carotid bruits. Jugular venous pressure is flat at 90. There is no thyromegaly. Cardiovascular exam reveals a regular rhythm with a normal S1 and S2. No S3, S4, or murmurs are noted. Lungs are clear without rales, rhonchi, or wheezes. Abdomen is soft and nontender without bruits. Extremities reveal intact radial artery and posterior tibial pulses bilaterally. There is no peripheral edema. Results & Data ([facility]) Vital Signs (Past 12 Hours) Vital Signs Temp Pulse Resp BP Pulse Ox O2 Del Method 10/04/22 11:00 36.5 C 61 16 126/81 96 Room Air 10/04/22 08:07 36.6 C 55 L 18 113/75 98 Room Air 10/04/22 03:14 36.6 C 61 18 103/65 98 Room Air Laboratory Results CBC notes hemoglobin of 15.5, hematocrit 44.1, white count 6.37, and platelet count of 233519. Electrolytes note a sodium of 139, potassium 4.7, chloride 111, bicarb 23, BUN 17, creatinine 1.08, and glucose of 93. Magnesium level is normal at 2.2. High sensitivity troponin is normal at 5.8. TSH is normal at 1.38. Diagnostic Findings EKG obtained in the emergency room yesterday noted atrial fibrillation with a rapid ventricular response and nonspecific ST and T-wave abnormality. Tracing this morning noted sinus rhythm without abnormalities. Echocardiogram notes normal left ventricular systolic function with ejection fraction 55-60%. There is mild tricuspid regurgitation. Chest x-ray shows no acute disease. PG Care Time/CCT Total # of Minutes Spent Total Time Spent with Patient: Total time spent is greater than 50% in coordination of care (as documented) at patient's floor/unit and/or counseling patient: Coding Level of Care Code INP/OBS CONSULT LVL 4, 60 MIN Diagnoses Atrial fibrillation with RVR I48.91 Hypertension I10 Hyperlipidemia E78.5
--- NOTE | 2022-10-04 12:47 | Discharge Summary ---
Date of Service October 04, 2022 Admission HPI Per Admitting Provider Attending: Dr. Bailon This is a 62-year-old [place] male who works at [employer]. PMH includes HTN, dyslipidemia, past tobacco abuse history. He was presenting for colonoscopy and found to have atrial fibrillation with rapid ventricular response. He was transferred to the emergency department and found to be tachycardic and given 5 mg of IV metoprolol. There is little effect with the beta-lyssa so patient was started on diltiazem drip. Patient continues to be tachycardic with a heart rate of 123. He has no chest pain or tightness. He has no lightheadedness or dizziness. No change in neurological function. No headache. No shortness of breath. No chest pain. No other acute complaints. Patient denies any previous history of atrial fibrillation or cardiac disease other than hypertension. He does consume alcohol but has not had any excessive intake or binge drinking. Electrolytes and TSH are within normal limits. Covid Vaccination X 1 plus 1 booster. Covid positive in the past but only supportive treatment needed 30 pack year smoking history. Quit smoking 10 years ago. Admission Exam Per Admitting Provider GENERAL : No acute distress EYES: No icterus, gaze conjugate NOSE: No evidence of epistaxis MOUTH: No lesions or candidiasis NECK: Supple LUNGS: CTA B/L, no wheezes, rales or rhonchi HEART: Irregular, irregular, rate in the 120s. No murmur gallop or rub appreciated. ABDOMEN: Soft, NT, ND, BS Present EXTREMITIES: No LE edema, pedal pulses intact NEURO: A&OX3. Pupils equal round react to light. Strength is equal and appropriate bilateral upper and lower extremities. Gaze is conjugate. Tongue is midline. Appropriate response during interview. No evidence of focal neurological deficit. Principal Diagnosis Atrial Fibrillation with RVR Discharge Exam Constitutional WD/WN, vitals as above Neck trachea midline, no thyromegaly neck nontender Respiratory normal respiratory effort, lungs clear to auscultation Cardiovascular Rate/Rhythm: regular rate and regular rhythm Gastrointestinal (Abdomen) normal bowel sounds, soft, nontender, no hepatosplenomegaly Musculoskeletal no cyanosis or clubbing, extremities motor strength 5/5 Skin no rashes, warm and dry Neurologic PERRL, EOMI, accommodation nl, no face palsy, no dysarthria Psychiatric A+Ox3, euthymic affect Lymphatic no cervical or axillary lymphadenopathy Discharge Data Allergies Allergy/AdvReac Type Severity Reaction Status Date / Time Sulfa (Sulfonamide Allergy Intermediate HIVES Verified 10/03/22 14:54 Antibiotics) Consultations 10/03/22 15:05 ED Decision to Admit Stat 10/04/22 06:45 Consult Cardiology Routine Ordered Studies Echo - revealed LV systolic function normal, EF 55-60%, no regional wall motion abnormalities, mild TR, PFO not assessed Hospital Course (1) Atrial fibrillation with RVR: New onset atrial fibrillation with RVR identified yesterday at preop examination for colonoscopy 10/03/22 Patient reports that he has been completely asymptomatic. No awareness of palpitations. Patient denies previous history of atrial fibrillation Patient initially given metoprolol tartrate 5 mg IV with limited response. Then initiated on diltiazem drip at 5 mg/h Patient started on metoprolol tartrate 25mg one BID Patient continued in atrial fibrillation with a rate in the 120s. Then the diltiazem drip was titrated up to 10 mg/h Admitted to PCU telemetry for monitoring Started on Eliquis for anticoagulation Cardiology consulted Echo revealed LV systolic function normal, EF 55-60%, no regional wall motion abnormalities, mild TR, PFO not assessed Patient converted back to normal sinus rhythm last evening and has remained in NSR Cardiology evaluated patient and agree with Metoprolol 25mg BID and Eliquis 5mg BID Recommend a follow up in thier office in 1-2 weeks. (2) Hyperlipidemia: Continue atorvastatin Outpatient monitoring (3) Hypertension: Patient was on Lisinopril and this was held while titrating diltiazem and metoprolol Echocardiogram as above for atrial fibrillation Will discharge today on Metoprolol 25mg one BID (4) History of tobacco abuse: [id number] smoking history Patient quit smoking in 2011 PCP may want to consider low-dose CT surveillance annually Plan Discharge to home today Follow up with cardiology and PCP in 1-2 weeks Also follow up with gastroenterology to reschedule colonoscopy Total Time Total Time Spent Total Time Spent (In Minutes): 35 Discharge Plan Discharge Items Patient Disposition: Home - Self-Care Reason For Visit: NEW ONSET A FIB Discharge Diagnosis: A Fib with RVR Condition on Discharge: Good Activity: Resume your previous activity Driving/Machine Use: Resume 1 day after discharge Weightbearing: Full weightbearing Non-emergency contact: Primary Care Provider Call non-emergency contact if: you have any medication questions Follow-up/Referrals: Frankie Gomes [Primary Care Provider] - Diet: Heart Healthy Addtl Attending Provider Instructions: You were admitted to the hospital when Atrial Fibrillation was found while you were being assessed prior to your colonoscopy. You were completely asymptommatic and had no chest pain, dyspnea or palpitations. You were treated [facility] IV medications to slow your heart rate and convert to a normal rhythm. These medications worked and last evening your heart returned to [facility]. Cardiology evaluated you and recommended to continue Metoprolol 25mg one 2 X per day and also Eliquis 5mg one 2x per day ( which is a medication to prevent blood clots) and they will see you in their office in 1-2 weeks. You also should follow up with your family physician and also with gastroenterology to reschedule your colonoscopy. You also had an echo which was an ultrasound to check the valves and motion and functioning of your heart. Which revealed normal function with no motion abnormalities. Your previous blood pressure medication was stopped - Lisinopril. When you follow up with your family doctor and the dot compliance specialist, your medications may need to be adjusted. You should continue your Atorvastatin 20mg daily. Pending Studies at Discharge: No Stand-Alone Forms: [facility] Medications and DC Order Prescriptions: New Eliquis 5 mg Tablet 5 mg PO BID Qty: 60 0RF metoprolol tartrate 25 mg Tablet 25 mg PO BID Qty: 60 0RF Continued atorvastatin 20 mg tablet 20 mg PO DAILY Discontinued lisinopril 20 mg tablet 20 mg PO DAILY Discharge Orders: Discharge Order (Routine); Ordered 10/04/22 Ordered By: Charity Millan/Other Patient Handouts: Anticoagulants, AFib Dc, AFib Preventing Stroke, AFib Admission Data Admit Date/Time: 10/03/22 15:47 Attending Provider: Herminio Morin Admit Provider: Everardo Bailon Primary Care Provider: Frankie Gomes Other Providers: Everardo Bailon ; Tenzin Lacy ; Pradeep Carcamo ; Duncan Cho ; Sukhwinder Wills ; Cory Criag ; Wes Guzman Jr ; Dale Nieves ; Sandra Vines ; Muna Bazan ; Caio Suggs ; Ji Laura ; Mansoor Browning ; Erin Chapman ; Rochelle Naylor ; Giancarlo Simmons ; Irwin Zuniga ; Obed Alba ; Sukhwinder Houston V. Other Interventions: Discharge Summary Assessment (RN) Last Done: 10/04/22 13:23 Coding Level of Care Code HOSP INP/OBS DISCH >30 MIN Diagnoses Atrial fibrillation with RVR I48.91 Hyperlipidemia E78.5 Hypertension I10 History of tobacco abuse Z87.891 Time Spent (min) 40
[2022-10-04 13:29] VITALS: PULSE 61
--- NOTE | 2022-10-04 15:32 | Electrocardiogram Report ---
Test Reason : Blood Pressure : / mmHG Vent. Rate : 050 BPM Atrial Rate : 050 BPM P-R Int : 136 ms QRS Dur : 086 ms QT Int : 434 ms P-R-T Axes : 059 049 047 degrees QTc Int : 395 ms Sinus bradycardia Otherwise normal ECG When compared with ECG of 03-OCT-2022 13:16, Sinus rhythm has replaced Atrial fibrillation Vent. rate has decreased BY [address] no longer depressed in Anterolateral leads Confirmed by Duncan Cho ([id number]) on 10/04/2022 3:32:14 PM Referred By: REFERRED SELF Confirmed By:Duncan Cho
== END 2022-10-04 15:48 | disposition home or self-care (01) | DRG 310 ==
LOC: ED 13:10 → EDINP 15:47 → SUATTDRO 15:47 → 4W 18:29